=== PATIENT | female | born 1950 | race Caucasian/White ===

== ENCOUNTER 2021-08-29 09:22 | Outpatient (REF) | payer MEDICARE, OTHER, SELFPAY ==
--- NOTE | ~2021-08-29 | MM_ITS ---
EXAMINATION: BONE DENSITOMETRY CLINICAL INDICATION: Age-related osteoporosis without current pathological fracture. COMPARISON: None (current study represents initial baseline exam). TECHNIQUE: Using a Amicus DXA System (software version: 13.1) manufactured by [employer], dual-energy x-ray absorptiometry was performed of the lumbar spine and left hip. The images are of good technical quality. Summary results are attached. FINDINGS: AP SPINE L1-L4: BMD 0.943 g/cm2, Z-score 0.1, T-score -2.0, osteopenia. LEFT FEMUR, NECK: BMD 0.742 g/cm2, Z-score -0.2, T-score 2.1, osteopenia. LEFT FEMUR, TOTAL: BMD 0.766 g/cm2, Z-score -0.2, T-score -1.9, osteopenia. IDENTIFIED RISK FACTORS: Menopause, hysterectomy, bilateral oophorectomy low calcium intake. HISTORY OF FRACTURE: None listed. MEDICATIONS: Vitamin D. MM/XR DEXA axial skeleton IMPRESSION: 1. DIAGNOSIS: Osteopenia based on the lowest T-score value of -2.1 in the femoral neck applying World Health Organization criteria. 2. 10-YEAR FRACTURE RISK PREDICTION, FRAX: Major osteoporotic fracture (clinical spine, forearm, hip or shoulder) 11.6%. Hip fracture 2.6%. 3. Treatment Recommendations: NOF guidelines recommend consideration for treatment in postmenopausal women and men age 50 and older presenting with the following: -A hip or vertebral (clinical or morphometric) fracture. -T-score less than or equal to -2.5 at the femoral neck or spine after appropriate evaluation to exclude secondary causes. -Low bone mass at the hip or spine and a 10-year fracture probability by FRAX of greater than or equal to 3% for hip fracture or greater than or equal to 20% for major osteoporotic fracture based on the [place] adapted WHO algorithm. 4. Other Recommendations: All treatment decisions require clinical judgment and consideration of individual patient factors, including patient preferences, comorbidities, previous drug use, risk factors not captured in the FRAX model (e.g. frailty, falls, vitamin D deficiency, increased bone turnover, interval significant decline in bone density) and possible under or overestimation of fracture risk by FRAX. Additional medical evaluation for secondary cause of low bone mineral density may be appropriate. FUTURE SCAN RECOMMENDATION: People with diagnosed cases of osteoporosis or at high risk for fracture should have regular bone mineral density tests. For patients eligible for Medicare, routine testing is allowed once every 2 years. The testing frequency can be increased to one year for patients who have rapidly progressing disease, those who are receiving or discontinuing medical therapy to restore bone mass, or have additional risk factors.
== END 2021-08-29 09:23 | disposition home or self-care (01) ==
LOC: HO.MAMMO 09:22
PROVIDERS: Visit Provider Internal Medicine
DX: Z13.820 Encounter for screening for osteoporosis (principal); E83.51 Hypocalcemia; Z78.0 Asymptomatic menopausal state; Z90.710 Acquired absence of both cervix and uterus; Z90.722 Acquired absence of ovaries, bilateral
CPT/HCPCS: 77080

== ENCOUNTER 2021-09-18 10:29 | Outpatient (REF) | payer MEDICARE, OTHER, SELFPAY ==
[2021-09-18 10:55] LABS: COVID-19 Test Positive (Negative)
== END 2021-09-18 10:30 | disposition home or self-care (01) ==
LOC: HO.LAB 10:29
PROVIDERS: Visit Provider Internal Medicine
DX: Z20.822 Contact with and (suspected) exposure to COVID-19 (principal)
CPT/HCPCS: 87635; C9803

== ENCOUNTER 2021-09-28 08:29 | Outpatient (REF) | payer MEDICARE, OTHER, SELFPAY ==
[2021-09-28 08:57] LABS: COVID-19 Test Positive (Negative)
== END 2021-09-28 08:30 | disposition home or self-care (01) ==
LOC: HO.LAB 08:29
PROVIDERS: Visit Provider Internal Medicine
DX: Z20.822 Contact with and (suspected) exposure to COVID-19 (principal)
CPT/HCPCS: 87635; C9803

== ENCOUNTER 2021-11-08 06:34 | Outpatient (REF) | payer MEDICARE, OTHER, SELFPAY ==
[2021-11-08 11:28] LABS: Hematocrit 42.3 % (37.0-47.0); Hemoglobin 13.6 g/dl (12.0-16.0); Mean Corpuscular HGB Conc 32.2 g/dl (31.0-35.0); Mean Corpuscular Volume 93.4 fL (80.0-98.0); Mean Platelet Volume 10.6 fL (9.4-12.3); Platelet Count 301 X10*3/uL (160-400); Red Blood Count 4.53 X10*6/uL (4.20-5.50); Red Cell Distribution Width 13.2 % (11.0-16.0); White Blood Count 6.1 X10*3/uL (4.8-10.8)
[2021-11-08 11:52] LABS: Estimated Average Glucose 105 mg/dL; Hemoglobin A1c % 5.3 %
[2021-11-08 11:53] LABS: Alanine Aminotransferase 11 U/L (0-31); Albumin Level 4.3 g/dL (3.5-5.0); Alkaline Phosphatase 59 U/L (39-117); Anion Gap 13 (12-20); Aspartate Amino Transferase 17 U/L (5-31); Bilirubin Total 1.8 mg/dL (0.0-1.0); Blood Urea Nitrogen 14 mg/dL (9-16); Calcium 9.2 mg/dL (8.4-10.2); Carbon Dioxide 26 mmol/L (22-29); Chloride 106 mmol/L (96-108); Cholesterol 160 mg/dL; Estimated Glomerular Filt Rate > 60; Glucose Fasting 85 mg/dL (60-99); HDL Cholesterol 61 mg/dL; LDL Cholesterol Calculated 76 mg/dl; Potassium 3.7 mmol/L (3.3-5.1); Sodium 141 mmol/L (135-145); Total Protein 6.9 g/dL (6.5-8.0); Triglycerides 118 mg/dL
[2021-11-08 12:16] LABS: Vitamin D 25-OH Total 40.3 ng/mL (>30)
== END 2021-11-08 06:35 | disposition home or self-care (01) ==
LOC: HO.HMGCLDS 06:34
PROVIDERS: PCP Internal Medicine; Visit Provider Internal Medicine
DX: E78.5 Hyperlipidemia, unspecified (principal); I10 Essential (primary) hypertension; M47.812 Spondylosis without myelopathy or radiculopathy, cervical region; R73.9 Hyperglycemia, unspecified; M81.0 Age-related osteoporosis without current pathological fracture
CPT/HCPCS: 36415; 80053; 80061; 82306; 83036; 85027

== ENCOUNTER 2022-04-06 08:00 | Outpatient (RCR) | payer MEDICARE, OTHER, SELFPAY ==
--- NOTE | 2022-03-09 08:56 | MHC.PT.EP ---
[facility] [place] Office [place] Office [place] Office [address] Sarah Bateman [address] [phone] F: [phone] F: [phone] F: [phone] F: [phone] Physical Therapy Plan of Care Date of Evaluation: Date of Surgery: n/a Diagnosis: cervical spondylosis Assessment: Patient is a 72 year old female presenting to PT with complaints of pain in her neck. Pt reports onset of pain began October 2021 due to lifting something heavy. She presents today with impairments in pain, cervical ROM, posture, B shoulder strength, UT tightness. 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 Pt expresses residential goal of reducing pain, and is motivated to work towards this in PT. Clinical presentation today is most consistent with signs and sx associated with chronic neck pain and pt will benefit from skilled PT to address the following problems and impairments noted upon evaluation: pain, cervical ROM, posture, B shoulder strength, UT tightness. These problems limit the patient with the following functional activities: ADLs, reaching, lifting, sitting. The prescribed treatment plan of care is medically necessary. Co-morbidities of hx stroke, hx basal cell carcinoma, HTN were identified and taken into considerations of plan of care. Pt was educated on HEP, role of PT, prognosis, POC. Frequency and Duration: The patient will be seen 2 x week x 4 weeks Short Term Goals: Pt will report pain at rest <3/10 in 2 weeks for improved QOL. Pt will demonstrate improved B shoulder MMT strength to at least 4+/5 in 2 weeks. Pt will demonstrate minimal to no tenderness to UT muscle in 2 weeks. Pt will demonstrate improved postural awareness by sitting with biomechanically correct posture without cues throughout session to improve overall postural function in 2 weeks. Alf Goals: Pt will demonstrate improved NDI score by 10% in 4 weeks for improved functional mobility. Pt will demonstrate ability to complete ADLs with minimal pain in 4 weeks for return to PLOF. Pt will demonstrate ability to reach with her R arm and minimal pain in 4 weeks for improved ability to blow dry her hair. Treatment Plan: Modalities to reduce pain, spasms and effusion. Manual therapy to restore motion and function. Therapeutic exercise to improve strength and flexibility. Neuromuscular re-education for posture and balance. Therapeutic activities to return to functional activities of daily living. Electronically signed by: Kamini Martinez PT, DPT, ATC Please sign and return to therapist. Thank you for your referral.
--- NOTE | 2022-04-06 08:44 | MHC.PT.DC ---
[facility] [place] Office [place] Office [place] Office [address] Sarah Bateman [address] [phone] F: [phone] F: [phone] F: [phone] F: [phone] Physical Therapy Discharge Report Diagnosis: cervical spondylosis Date of Surgery: n/a Date of Evaluation: 03/09/22 Date of Discharge: 04/06/22 Treatments to Date: 6 Cancellations to Date: 3 No Shows to Date: 0 Discharge Status: Independent with HEP Recommend MD Follow-up Discharge Summary: 04/06/2022: Pt has unfortunately felt no relief from PT despite good compliance with HEP and attendance. She continues to have pain and functional limitations limiting her progress towards her goals. Max benefits of PT have been provided at this time and various different treatment interventions have been trialed all without success. Skilled PT is no longer indicated as she is not feeling relief with this intervention. Discussed recommendation to follow up with MD for further management of pain and sx and she demonstrates understanding and agreement with this plan. Electronically signed by: Kamini Martinez, PT, DPT, ATC Please sign and return to therapist. Thank you for your referral.
== END 2022-04-06 08:44 | disposition home or self-care (01) ==
LOC: HO.PTCHIC 08:00
PROVIDERS: PCP Internal Medicine; Visit Provider Internal Medicine
DX: M47.22 Other spondylosis with radiculopathy, cervical region (principal)
CPT/HCPCS: 97110; 97140; 97162

== ENCOUNTER 2022-12-04 07:31 | Outpatient (AMB) | payer MEDICARE, OTHER, SELFPAY ==
[2022-12-04 07:48] VITALS: BP 120/78; PULSE 82; O2SAT 96; BMI 22.3
--- NOTE | 2022-12-04 07:48 | AM.OFFVISMDC ---
Intake Vital Signs 12/04/22 07:48 Height 5 ft 1 in Weight 118 lb BMI 22.3 BP 120/78 Blood Pressure Location Rt brachial Position Sitting Pulse 82 Pulse Source Pulse Oximeter Pulse Oximetry (%) 96 Oxygen Delivery Method Room Air Intake Visit Reasons: SWV G0439 Allergies codeine [CODEINE] Allergy (Unknown, Unverified 12/04/22 07:51) SHORTNESS OF BREATH Medication List - Last Reconciled 12/04/22 by Stephani Patel MD atorvastatin 10 mg PO DAILY cholecalciferol (vitamin D3) PO gabapentin 100 -200 mg orally bedtime; lisinopril 5 mg PO DAILY HPI SWV G0439 HPI Details Pt presens for annual. Pt c/o LEAL when working in the garden this summer, feeling more fatigued. She denies CP, PND, orthopnea, palpitations.Initiated the conversation about Advanced Directives. Advanced Directives help? patients prepare for current and future decisions about their medical treatment? and place of care. Discussed with patient that it is a process where a patients? current condition and prognosis are reviewed, their wishes for information? regarding their illness are elicited, and likely medical dilemmas are presented? and options discussed. The form can be amended as needed, reviewed yearly and? make changes as needed IPPE/AWV ? year old presents? for her ? Annual? Wellness Visit, initial visit.? Medical / Social History Reviewed? Past Medical History ?Yes? . ? [place]? of Care / Care Team list updated ?Yes . ? Surgical/Hospitalization? History ?Yes . ? Current Medications? (including OTC and supplements) ?Yes . ? Family History ?Yes? . ? Tobacco? Control form ?Yes . ? AUDIT-C (Alcohol use) form? ?Yes . ? Illicit drug use in Social? History ?Yes . ? Current diagnosis of? depression? ?No ? Appropriate PHQ2/PHQ9? completed ?Yes . ? Data entered by ?Medical? Reel Operator and reviewed by provider ? Fall Risk ? Fall? History? Have you had any falls with? injury in the past year? ?No . ? Have you had two or more? falls in the past year? ?No . ? Fall Risk Assessment: ?No? falls in the past year . ? HRA filled out by? the patient, reviewed by Provider and scanned. ? IPPE/AWV ? Balance? [place]? ?Yes . ? Tandem? walk ?Yes . ? Walk and? Turn ?Yes . ? Rise from? sit to stand ?Yes . ?Vision? Corrective? lens ?Yes ? Vision? screen ? Up-to-date, has an appointment [] for vision? screening and glaucoma screening ?Hearing? Whisper? test ?pass .? Initiated the conversation about Advanced Directives. Advanced Directives help? patients prepare for current and future decisions about their medical treatment? and place of care. Discussed with patient that it is a process where a patients? current condition and prognosis are reviewed, their wishes for information? regarding their illness are elicited, and likely medical dilemmas are presented? and options discussed. The form can be amended as needed, reviewed yearly and? make changes as needed Written? Plan?Completed. See Patient? Documents. [facility] Medical History Basal cell carcinoma CVA (cerebral vascular accident) DJD (degenerative joint disease), cervical HTN (hypertension) Hyperglycemia Hyperlipemia Surgical History Hx of colonoscopy History of hysterectomy S/P cholecystectomy History of appendectomy Family History Mother Stroke Hypertension Father No problems noted. Paternal Grandmother Cancer Social History Household Members Other:: , 2 alive adult children, Housing: House Patient Tobacco Use Status: Never used Tobacco e-Cigarette/Vaping Use: Never Used Current occupational status: retired Cognitive needs: No Hearing needs: No Vision needs: Yes Questionnaire Medicare Wellness Checkup [age] What gender do you identify with?: female During the past 4 weeks, how much have you been bothered by emotional problems such as feeling anxious, depressed, irritable, sad or downhearted, and blue?: not at all During the past 4 weeks, has your physical & emotional health limited your social activities with family, friends, neighbors, or groups?: not at all During the past 4 weeks, how much bodily pain have you generally had?: moderate pain During the past 4 weeks, was someone available to help you if you needed & wanted help?: yes, as much as I wanted During the past 4 weeks, what was the hardest physical activity you could do for at least 2 minutes?: moderate Can you get to places out of walking distance without help? (For eg., can you travel alone on buses, taxis or drive your car?): Yes Can you go shopping for groceries or clothes without someone's help?: Yes Can you prepare your own meals?: Yes Can you do your housework without help?: Yes Because of any health problems, do you need the help of another person with your personal care needs such as eating, bathing, dressing or getting around the house?: No Can you handle your own money without help?: Yes During the past 4 weeks, how would you rate your health in general?: good During the past 4 weeks how have things been going for you?: pretty well Are you having difficulties driving your car?: no Do you always fasten your seat belt when you are in a car?: yes, usually During past 4 weeks, have you been bothered by the following: never: Sexual problems?, Trouble eating well?, Teeth or denture problems? and Problems using the telephone?, seldom: Falling or dizzy when standing up and sometimes: Tiredness or fatigue? Have you fallen 2 or more times in the past year?: No Are you afraid of falling?: Yes Are you a smoker?: no During the past 4 weeks, how many drinks of wine, beer, or other alcoholic beverages did you have?: 2-5 drinks per week Do you exercise for about 20 minutes 3 or more times a week?: yes, all the time Have you been given information to help with the following?: yes: Hazards in your house that might hurt you? and yes: Keeping track of your medications? How often do you have trouble taking medicines the way you have been told to take them?: I always take medicine as prescribed How confident are you that you can control & manage most of your health problems?: very confident What is your race?: White PHQ-9 Over the last 2 weeks, how often have you been bothered by any of the following problems? 1. Little interest or pleasure in doing things: not at all 2. Feeling down, depressed, or hopeless: not at all 3. Trouble falling or staying asleep, or sleeping too much: nearly every day 4. Feeling tired or having little energy: several days 5. Poor appetite or overeating: not at all 6. Feeling bad about yourself - or that you are a failure or have let yourself or your family down: not at all 7. Trouble concentrating on things, such as reading the newspaper or watching television: several days 8. Moving or speaking so slowly that other people could have noticed. Or the opposite - being so fidgety or restless that you have been moving around a lot more than usual: not at all 9. Thoughts that you would be better off or of hurting yourself in some way: not at all Total score: 5 Source: Developed by Drs. Carlton Dobbs, Jessica Duke, Alex Vargas and colleagues, with an educational priya from [employer]. Review of Systems Const All systems reviewed & are unremarkable except as noted in HPI and below Reports no additional complaints Eyes Reports no additional complaints ENT Reports no additional complaints Card Reports no additional complaints Resp Reports no additional complaints GI Reports no additional complaints Reports no additional complaints Physical Exam Vital Signs: Last Vital Signs Pulse 82 12/04/22 07:48 BP 120/78 12/04/22 07:48 Pulse Ox 96 12/04/22 07:48 Oxygen Delivery Method Room Air 12/04/22 07:48 BMI result Body Mass Index 22.3 Const General: no acute distress HEENT Head: Yes normal to inspection Eyes General: appearance normal, both eyes and all related structures Neck Neck: Yes no lymphadenopathy and Yes supple Resp Effort & Inspection: normal respiratory effort Auscultation: clear to auscultation bilaterally Cardio Rhythm: regular rhythm Heart sounds: S1 normal heart sound present and S2 normal heart sound present GI Inspection: Yes normal to inspection Palpation (GI): Soft to palpation Percussion: Yes normal to percussion Auscultation: normal bowel sounds Extrem General: Yes no clubbing, cyanosis or edema Assessment & Plan Assessment & Plan (1) Hyperglycemia: Code(s): R73.9 - Hyperglycemia, unspecified Plan: cont ADA diet, return for fasting labs (2) HTN (hypertension): Code(s): I10 - Essential (primary) hypertension Plan: cont meds (3) Hyperlipemia: Code(s): E78.5 - Hyperlipidemia, unspecified Plan: cont meds (4) LEAL (dyspnea on exertion): Code(s): R06.09 - Other forms of dyspnea Plan: EKG showed NSR, no ST-T changes, check stress test to r/o ischemia (5) Hearing loss: Code(s): H91.90 - Unspecified hearing loss, unspecified ear Plan: refer to audiology (6) Annual physical exam: Code(s): Z00.00 - Encounter for general adult medical examination without abnormal findings Plan: well balanced diet, exercise, schedule mammogram, f/u 2 months Orders: Orders Complete Blood Count Auto Diff Today E78.5 - Hyperlipidemia, unspecified, I10 - Essential (primary) hypertension, R73.9 - Hyperglycemia, unspecified, Z00.00 - Encounter for general adult medical examination without abnormal findings Lipid Panel Today E78.5 - Hyperlipidemia, unspecified, I10 - Essential (primary) hypertension, R73.9 - Hyperglycemia, unspecified, Z00.00 - Encounter for general adult medical examination without abnormal findings TSH reflex Free T4 Today E78.5 - Hyperlipidemia, unspecified, I10 - Essential (primary) hypertension, R73.9 - Hyperglycemia, unspecified, Z00.00 - Encounter for general adult medical examination without abnormal findings CA stress test Today R06.09 - Other forms of dyspnea MM screening mammo BI Today E78.5 - Hyperlipidemia, unspecified, I10 - Essential (primary) hypertension, R73.9 - Hyperglycemia, unspecified, Z00.00 - Encounter for general adult medical examination without abnormal findings, Z12.31 - Encounter for screening mammogram for malignant neoplasm of breast Comprehensive [place]. Panel Fast Today E78.5 - Hyperlipidemia, unspecified, I10 - Essential (primary) hypertension, R73.9 - Hyperglycemia, unspecified, Z00.00 - Encounter for general adult medical examination without abnormal findings UA w Microscopic Today E78.5 - Hyperlipidemia, unspecified, I10 - Essential (primary) hypertension, R73.9 - Hyperglycemia, unspecified, Z00.00 - Encounter for general adult medical examination without abnormal findings Vitamin D 25-OH Total Today E78.5 - Hyperlipidemia, unspecified, I10 - Essential (primary) hypertension, R73.9 - Hyperglycemia, unspecified, Z00.00 - Encounter for general adult medical examination without abnormal findings Hemoglobin A1c Today R73.9 - Hyperglycemia, unspecified AMB EKG-In Office Today I10 - Essential (primary) hypertension, R06.09 - Other forms of dyspnea Referrals Audiology Referral H91.90 - Unspecified hearing loss, unspecified ear Quality Reporting (2019) Depression/Bipolar (159/160/161/177) PHQ-9: Total score: 5 Coding Level of Care Code Medicare Subsequent (G0439) Diagnoses Hyperglycemia R73.9 HTN (hypertension) I10 Hyperlipemia E78.5 LEAL (dyspnea on exertion) R06.09 Hearing loss H91.90 Annual physical exam Z00.00 CPT Codes Advance Care Planning - Time spent: 1-15 minutes, not on file ([id number]) Advance Care Planning Advance Care Planning discussion: Exists, not on file Forms completed: Health Care Proxy Time spent: 1-15 minutes, not on file
== END 2022-12-04 08:59 | disposition home or self-care (01) ==
PROVIDERS: PCP Internal Medicine; Visit Provider Internal Medicine
DX: Z00.00 Encounter for general adult medical examination without abnormal findings (principal); R73.9 Hyperglycemia, unspecified; I10 Essential (primary) hypertension; E78.5 Hyperlipidemia, unspecified; R06.09 Other forms of dyspnea; H91.90 Unspecified hearing loss, unspecified ear
CPT/HCPCS: 1124F; 93000; G0439

== ENCOUNTER 2022-12-06 06:04 | Outpatient (REF) | payer MEDICARE, OTHER, SELFPAY ==
[2022-12-06 11:00] LABS: MANUAL DIFF FLAG NO
[2022-12-06 11:17] LABS: Basophils Percent Auto 0.6 % (0-2); Eosinophils Absolute Auto 0.1 X10*3/uL (0.0-0.4); Eosinophils Percent Auto 2.7 % (0-4); Hematocrit 39.4 % (37.0-47.0); Hemoglobin 12.9 g/dl (12.0-16.0); Imm Gran Abs Auto 0.03 X10*3/uL (0.00-0.03); Imm Gran Pct Auto 0.6 % (0.0-0.4); Lymphocytes Absolute Auto 1.6 X10*3/uL (1.2-4.9); Lymphocytes Percent Auto 29.5 % (20-40); Mean Corpuscular HGB Conc 32.7 g/dl (31.0-35.0); Mean Corpuscular Hemoglobin 30.9 pg (27.0-33.0); Mean Corpuscular Volume 94.3 fL (80.0-98.0); Mean Platelet Volume 10.5 fL (9.4-12.3); Monocytes Absolute Auto 0.6 X10*3/uL (0.1-1.2); Neutrophils Absolute Auto 2.9 x10*3/uL (2.0-8.3); Neutrophils Percent Auto 55.6 % (45-73); Platelet Count 274 X10*3/uL (160-400); Red Blood Count 4.18 X10*6/uL (4.20-5.50); Red Cell Distribution Width 13.4 % (11.0-16.0); White Blood Count 5.3 X10*3/uL (4.8-10.8)
[2022-12-06 11:19] LABS: Appearance Urine Clear; Color Urine Yellow; Glucose Urine UA Negative (Negative); Leukocyte Esterase Urine Small (1+) (Negative); Nitrite Urine Negative (Negative); PH 7.5 (5.0-9.0); UMIC TRIGGER UA YES; Urine Blood Negative (Negative); Urine Ketones Negative (Negative); Urine Protein Negative (Neg-Trace)
[2022-12-06 11:34] LABS: Bacteria Urine None Seen (None Seen); Hyaline Casts Urine 0-2 /LPF (0-2); RBC Urine 0-2 /HPF (0-2); Squamous Epithelial Cell Urine 0-2 /HPF (0-2); WBC Urine 0-5 /HPF (0-5)
[2022-12-06 12:02] LABS: Alanine Aminotransferase 10 U/L (0-31); Albumin Level 4.1 g/dL (3.5-5.0); Alkaline Phosphatase 57 U/L (39-117); Anion Gap 11 (12-20); Aspartate Amino Transferase 17 U/L (5-31); Bilirubin Total 1.4 mg/dL (0.0-1.0); Blood Urea Nitrogen 12 mg/dL (9-16); Calcium 9.1 mg/dL (8.4-10.2); Carbon Dioxide 27 mmol/L (22-29); Chloride 106 mmol/L (96-108); Cholesterol 156 mg/dL (<200); Estimated Glomerular Filt Rate > 60; Glucose Fasting 89 mg/dL (60-99); HDL Cholesterol 71 mg/dL (>40); LDL Cholesterol Calculated 72 mg/dL (<100); Potassium 4.2 mmol/L (3.3-5.1); Sodium 140 mmol/L (135-145); TSH reflex Free T4 1.63 uIU/mL (0.32-4.0); Total Protein 6.5 g/dL (6.5-8.0); Triglycerides 65 mg/dL (<150); Vitamin D 25-OH Total 68.9 ng/mL (>30)
[2022-12-06 12:45] LABS: Estimated Average Glucose 105 mg/dL; Hemoglobin A1c % 5.3 % (<6.0)
== END 2022-12-06 06:05 | disposition home or self-care (01) ==
LOC: HO.HMGCLDS 06:04
PROVIDERS: PCP Internal Medicine; Visit Provider Internal Medicine
DX: Z00.00 Encounter for general adult medical examination without abnormal findings (principal); R73.9 Hyperglycemia, unspecified; I10 Essential (primary) hypertension; E78.5 Hyperlipidemia, unspecified
CPT/HCPCS: 36415; 80053; 80061; 81001; 82306; 83036; 84443; 85025

== ENCOUNTER 2022-12-27 08:09 | Outpatient (REF) | payer MEDICARE, OTHER, SELFPAY ==
--- NOTE | 2022-12-27 08:49 | CA_ITS ---
Acquisition Time: 2022-12-27 08:59:55 Total Exercise Time: 00:05:02 Test Indications: SOB Medications: Protocol: VICTORINO Max HR: 151 BPM 101% of Pred: 149 BPM Max BP: 138/068 mmHG Max Work Load: 7.0 METS Exercise stress test exercise 5 min 2 sec of Victorino protocol achieving 101% MPHR, with mild SOB, no chest discomfort, with isolated PACs, with normotensive response to exercise, without EKG changes. Breathing resolved quickly in recovery. Test reviewed with Dr. Dunn Referred By: Stephani Patel Overread By: May Waters
== END 2022-12-27 08:10 | disposition home or self-care (01) ==
LOC: HO.MAMMO 08:09
PROVIDERS: PCP Internal Medicine; Visit Provider Internal Medicine
DX: R06.09 Other forms of dyspnea (principal); R73.9 Hyperglycemia, unspecified; I10 Essential (primary) hypertension; Z12.31 Encounter for screening mammogram for malignant neoplasm of breast
CPT/HCPCS: 77063; 77067; 93017

== ENCOUNTER → 2022-12-27 08:15 | Outpatient (BNV) | payer MEDICARE, OTHER, SELFPAY | PROVIDERS: PCP Internal Medicine; Visit Provider Radiology Diagnostic Radiology | DX: Z12.31 Encounter for screening mammogram for malignant neoplasm of breast (principal) | CPT/HCPCS: 77063; 77067 ==

== ENCOUNTER → 2022-12-27 08:49 | Outpatient (BNV) | payer MEDICARE, OTHER, SELFPAY | PROVIDERS: PCP Internal Medicine; Visit Provider Nurse Practitioner | DX: R06.02 Shortness of breath (principal) | CPT/HCPCS: 93016; 93018 ==

== ENCOUNTER 2023-07-22 06:09 | Outpatient (REF) | payer MEDICARE, OTHER, SELFPAY ==
[2023-07-22 10:29] LABS: MANUAL DIFF FLAG NO
[2023-07-22 10:36] LABS: Basophils Percent Auto 0.5 % (0-2); Eosinophils Absolute Auto 0.1 X10*3/uL (0.0-0.4); Eosinophils Percent Auto 1.7 % (0-4); Hematocrit 41.3 % (37.0-47.0); Hemoglobin 13.7 g/dl (12.0-16.0); Imm Gran Abs Auto 0.02 X10*3/uL (0.00-0.03); Imm Gran Pct Auto 0.3 % (0.0-0.4); Lymphocytes Absolute Auto 1.5 X10*3/uL (1.2-4.9); Lymphocytes Percent Auto 25.2 % (20-40); Mean Corpuscular HGB Conc 33.2 g/dl (31.0-35.0); Mean Corpuscular Hemoglobin 31.6 pg (27.0-33.0); Mean Corpuscular Volume 95.2 fL (80.0-98.0); Mean Platelet Volume 10.4 fL (9.4-12.3); Monocytes Absolute Auto 0.6 X10*3/uL (0.1-1.2); Monocytes Percent Auto 10.3 % (2-11); Neutrophils Absolute Auto 3.8 x10*3/uL (2.0-8.3); Platelet Count 288 X10*3/uL (160-400); Red Blood Count 4.34 X10*6/uL (4.20-5.50); Red Cell Distribution Width 13.1 % (11.0-16.0)
[2023-07-22 10:52] LABS: Alanine Aminotransferase 10 U/L (0-31); Albumin Level 4.3 g/dL (3.5-5.0); Alkaline Phosphatase 65 U/L (39-117); Anion Gap 15 (12-20); Aspartate Amino Transferase 18 U/L (5-31); Bilirubin Total 1.3 mg/dL (0.0-1.0); Blood Urea Nitrogen 12 mg/dL (9-16); Calcium 9.4 mg/dL (8.4-10.2); Carbon Dioxide 24 mmol/L (22-29); Chloride 107 mmol/L (96-108); Estimated Glomerular Filt Rate > 60; Glucose Fasting 87 mg/dL (60-99); Potassium 4.2 mmol/L (3.3-5.1); Sodium 142 mmol/L (135-145); Total Protein 6.9 g/dL (6.5-8.0)
== END 2023-07-22 06:10 | disposition home or self-care (01) ==
LOC: HO.HMGCLDS 06:09
PROVIDERS: PCP Internal Medicine; Visit Provider Internal Medicine
DX: I10 Essential (primary) hypertension (principal); E78.5 Hyperlipidemia, unspecified
CPT/HCPCS: 36415; 80053; 85025

== ENCOUNTER 2023-07-24 13:22 | Outpatient (AMB) | payer MEDICARE, OTHER, SELFPAY ==
[2023-07-24 13:44] VITALS: BP 116/66; PULSE 91; O2SAT 96; BMI 22.3
--- NOTE | 2023-07-24 13:44 | MHC.PC.OV ---
Vital Signs 07/24/23 13:44 Height 5 ft 1 in Weight 118 lb BMI 22.3 BP 116/66 Blood Pressure Location Lt brachial Position Sitting Pulse 91 Pulse Source Pulse Oximeter Pulse Oximetry (%) 96 Oxygen Delivery Method Room Air Intake Visit Reasons: Pre op cataract surgery 08/06/23 Intake Note: Pt is here today for pre op visit. Pt is having cataract surgery. Allergies codeine [CODEINE] Allergy (Unknown, Unverified 07/24/23 13:48) SHORTNESS OF BREATH Medication List - Last Reconciled 07/24/23 by Stephani Patel MD atorvastatin 10 mg PO DAILY cholecalciferol (vitamin D3) PO gabapentin 100 -200 mg orally bedtime; lisinopril 5 mg PO DAILY Tobacco use date assessed: 07/24/23 Fall risk assessment: No Falls in past year Last assessed Fall Risk: 07/24/23 Dental Screening Dental Screen Date: 07/24/23 Did you have a dental visit in the last 12 months?: Yes Did you have a dental problem in the last 6 months where you did not have access to dental care?: No Was dental information given to patient?: Patient has dentist HPI Pre op cataract surgery 08/06/23 HPI Details Pt presents for cataract surgery. HTN and hyperlipid are stable on meds. [facility] Medical History (Updated 07/24/23 @ 14:33 by Stephani Patel MD) Hyperglycemia Basal cell carcinoma DJD (degenerative joint disease), cervical HTN (hypertension) Hyperlipemia CVA (cerebral vascular accident) Surgical History Hx of colonoscopy History of hysterectomy S/P cholecystectomy History of appendectomy Family History Mother Stroke Hypertension Father No problems noted. Paternal Grandmother Cancer Social History Household Members Other:: , 2 alive adult children, Housing: House Patient Tobacco Use Status: Never used Tobacco e-Cigarette/Vaping Use: Never Used service: No Current occupational status: retired Cognitive needs: No Hearing needs: No Vision needs: Yes Questionnaire Thrive Questionnaire Date Thrive assessed: 11/01/21 AUDIT C Alcohol Use Questionnaire (AUDIT-C) 1. How often do you have a drink containing alcohol?: Monthly or less 2. How many drinks containing alcohol do you have on a typical day when you are drinking?: 1 or 2 3. How often do you have six or more drinks on one occasion?: Never Total Score: 1 MAYKEL-7 AMB Questionnaire MAYKEL-7 Date MAYKEL - 7 assessed: 11/01/21 Source: Developed by Drs. Carlton Dobbs, Jessica Duke, Alex Vargas and colleagues, with an educational priya from [employer]. Review of Systems Const All systems reviewed & are unremarkable except as noted in HPI and below Eyes Reports no additional complaints ENT Reports no additional complaints Physical exam (Primary Care) Vital Signs: Last Vital Signs Pulse 91 07/24/23 13:44 BP 116/66 07/24/23 13:44 Pulse Ox 96 07/24/23 13:44 Oxygen Delivery Method Room Air 07/24/23 13:44 BMI result Body Mass Index 22.3 Tobacco/Smoking Status: Tobacco use Status Tobacco use date assessed 07/24/23 07/24/23 13:49 Patient Tobacco Use Status Never used Tobacco 07/24/23 13:49 e-Cigarette/Vaping Use Never Used 07/24/23 13:45 Thrive Assessment: Date of Thrive Assessment Date Thrive assessed 11/01/21 07/24/23 13:45 Const General: no acute distress HENMT Head: Yes normal to inspection Throat: Yes posterior oropharynx normal Resp Effort & Inspection: normal respiratory effort Auscultation: clear to auscultation bilaterally Cardio Rhythm: regular rhythm Heart sounds: S1 normal heart sound present and S2 normal heart sound present GI Inspection: Yes normal to inspection Palpation (GI): Soft to palpation Percussion: Yes normal to percussion Auscultation: normal bowel sounds Assessment and Plan Assessment & Plan (1) Hyperlipemia: Code(s): E78.5 - Hyperlipidemia, unspecified Plan: Continue atorvastatin (2) HTN (hypertension): Code(s): I10 - Essential (primary) hypertension Plan: Continue Lisinopril (3) Cataract: Code(s): H26.9 - Unspecified cataract Plan: Patient is medically cleared for cataract surgery Coding Level of Care Code Est Pt Level 4 (32161) Diagnoses Hyperlipemia E78.5 HTN (hypertension) I10 Cataract H26.9
== END 2023-07-24 14:33 | disposition home or self-care (01) ==
LOC: HO.HMGC 13:43
PROVIDERS: PCP Internal Medicine; Visit Provider Internal Medicine
DX: E78.5 Hyperlipidemia, unspecified (principal); I10 Essential (primary) hypertension; H26.9 Unspecified cataract
CPT/HCPCS: 99214

== ENCOUNTER 2023-12-10 07:53 | Outpatient (AMB) | payer MEDICARE, OTHER, SELFPAY ==
[2023-12-10 08:11] VITALS: BP 108/70; PULSE 70; O2SAT 100; BMI 21.7
--- NOTE | 2023-12-10 08:11 | A.OFFVIS_ITS ---
Intake Vital Signs 12/10/23 08:11 Height 5 ft 1 in Weight 115 lb BMI 21.7 BP 108/70 Blood Pressure Location Lt brachial Position Sitting Pulse 70 Pulse Source Pulse Oximeter Pulse Oximetry (%) 100 Oxygen Delivery Method Room Air Intake Visit Reasons: SHAYNA [id number] Intake Note: Pt is here today for AWV. Pt states that she needs a dose change on her Misti pentin. Allergies codeine [CODEINE] Allergy (Unknown, Unverified 12/10/23 08:13) SHORTNESS OF BREATH Medication List - Last Reconciled 12/10/23 by Stephani Patel MD atorvastatin 10 mg PO DAILY cholecalciferol (vitamin D3) PO gabapentin 100 -200 mg orally bedtime; lisinopril 5 mg PO DAILY HPI SWV [id number] HPI Details Initiated the conversation about Advanced Directives. Advanced Directives help? patients prepare for current and future decisions about their medical treatment? and place of care. Discussed with patient that it is a process where a patients? current condition and prognosis are reviewed, their wishes for information? regarding their illness are elicited, and likely medical dilemmas are presented? and options discussed. The form can be amended as needed, reviewed yearly and? make changes as needed IPPE/AWV ? year old presents? for her ? Annual? Wellness Visit, initial visit.? Medical / Social History Reviewed? Past Medical History ?Yes? . ? [place]? of Care / Care Team list updated ?Yes . ? Surgical/Hospitalization? History ?Yes . ? Current Medications? (including OTC and supplements) ?Yes . ? Family History ?Yes? . ? Tobacco? Control form ?Yes . ? AUDIT-C (Alcohol use) form? ?Yes . ? Illicit drug use in Social? History ?Yes . ? Current diagnosis of? depression? ?No ? Appropriate PHQ2/PHQ9? completed ?Yes . ? Data entered by ?[facility]? [employer] and reviewed by provider ? Fall Risk ? Fall? History? Have you had any falls with? injury in the past year? ?No . ? Have you had two or more? falls in the past year? ?No . ? Fall Risk Assessment: ?No? falls in the past year . ? HRA filled out by? the patient, reviewed by Provider and scanned. ? IPPE/AWV ? Balance? [place]? ?Yes . ? Tandem? walk ?Yes . ? Walk and? Turn ?Yes . ? Rise from? sit to stand ?Yes . ?Vision? Corrective? lens ?Yes ? Vision? screen ? Up-to-date, has an appointment [] for vision? screening and glaucoma screening ?Hearing? Whisper? test ?pass .? Initiated the conversation about Advanced Directives. Advanced Directives help? patients prepare for current and future decisions about their medical treatment? and place of care. Discussed with patient that it is a process where a patients? current condition and prognosis are reviewed, their wishes for information? regarding their illness are elicited, and likely medical dilemmas are presented? and options discussed. The form can be amended as needed, reviewed yearly and? make changes as needed Written? Plan?Completed. See Patient? Documents. [id number] [facility] Medical History (Updated 07/24/23 @ 14:33 by Stephani Patel MD) Hyperglycemia Basal cell carcinoma DJD (degenerative joint disease), cervical HTN (hypertension) Hyperlipemia CVA (cerebral vascular accident) Surgical History Hx of colonoscopy History of hysterectomy S/P cholecystectomy History of appendectomy Family History Mother Stroke Hypertension Father No problems noted. Paternal Grandmother Cancer Social History Household Members Other:: , 2 alive adult children, Housing: House Patient Tobacco Use Status: Never used Tobacco e-Cigarette/Vaping Use: Never Used service: No Current occupational status: retired Cognitive needs: No Hearing needs: No Vision needs: Yes Questionnaire Medicare Wellness Checkup [age] What gender do you identify with?: female During the past 4 weeks, how much have you been bothered by emotional problems such as feeling anxious, depressed, irritable, sad or downhearted, and blue?: not at all During the past 4 weeks, has your physical & emotional health limited your social activities with family, friends, neighbors, or groups?: not at all During the past 4 weeks, how much bodily pain have you generally had?: mild pain During the past 4 weeks, was someone available to help you if you needed & wanted help?: yes, as much as I wanted During the past 4 weeks, what was the hardest physical activity you could do for at least 2 minutes?: moderate Can you get to places out of walking distance without help? (For eg., can you travel alone on buses, taxis or drive your car?): Yes Can you go shopping for groceries or clothes without someone's help?: Yes Can you prepare your own meals?: Yes Can you do your housework without help?: Yes Because of any health problems, do you need the help of another person with your personal care needs such as eating, bathing, dressing or getting around the house?: No Can you handle your own money without help?: Yes During the past 4 weeks, how would you rate your health in general?: very good During the past 4 weeks how have things been going for you?: very well; could hardly better Are you having difficulties driving your car?: no Do you always fasten your seat belt when you are in a car?: yes, usually During past 4 weeks, have you been bothered by the following: never: Sexual problems?, Trouble eating well?, Teeth or denture problems?, Problems using the telephone? and Tiredness or fatigue? and sometimes: Falling or dizzy when standing up Have you fallen 2 or more times in the past year?: No Are you afraid of falling?: No Are you a smoker?: no During the past 4 weeks, how many drinks of wine, beer, or other alcoholic beverages did you have?: 1 drink or less per week Do you exercise for about 20 minutes 3 or more times a week?: yes, some of the time Have you been given information to help with the following?: yes: Hazards in your house that might hurt you? and yes: Keeping track of your medications? How often do you have trouble taking medicines the way you have been told to take them?: I always take medicine as prescribed How confident are you that you can control & manage most of your health problems?: very confident What is your race?: White Mini Mental State Exam (MMSE) Orientation What is the (year) (season) (date) (day) (month)?: year, season, date, day and month Where are we (state) (county) (town or city) (hospital) (floor)?: state, county, town or city, hospital/clinic and floor Registration Name of 3 unrelated objects clearly and slowly, then ask patient to repeat all 3 of them. (1st repeat determines score. Make sure they can repeat all three): object 1, object 2 and object 3 Attention & Calculation (CHOOSE ONE) Spell WORLD backwards (DLROW): 5 letters Recall Ask patient to repeat the 3 items from question #3.: object 1, object 2 and o bject 3 Language Show patient a wristwatch & ask what it is. Repeat for pencil.: watch and pencil Ask the patient to repeat the phrase 'No ifs, ands, or buts' after you.: correct Ask the patient to 'take a piece of paper with their right hand' 'fold paper in half' 'place paper on floor': take paper in right hand, fold paper in half and place paper on floor Print the sentence 'CLOSE YOUR EYES' on a piece. If patient actually closes eyes then score.: followed written direction Give patient a blank piece of paper & ask to write a sentence. Score if it contains a noun & verb.: sentence contains subject and verb Score Score: 29 Activity of Daily Living Bathing - sponge bath, tub bath or shower: receives no assistance (gets in/out by self, if usual bathing means Dressing - getting clothes from closets & drawers, including inner/outer garments & fasteners.: gets clothes & gets completely dressed without help Toileting - going to the 'toilet room' for urine/bowel elimination & cleaning self/arranging clothes: goes to toilet room, cleans self, arranges clothes without help Transfer: moves in & out of bed and chair without help (may use support object) Continence: controls urination/bowel movements completely by self Feeding: feeds self without help Total Score: 0 Information obtained from: patient Using telephone: independent Traveling: independent Shopping: independent Preparing meals: independent Housework: independent Taking medicine: independent Managing money: independent PHQ-9 Over the last 2 weeks, how often have you been bothered by any of the following problems? 1. Little interest or pleasure in doing things: not at all 2. Feeling down, depressed, or hopeless: not at all 3. Trouble falling or staying asleep, or sleeping too much: several days 4. Feeling tired or having little energy: not at all 5. Poor appetite or overeating: not at all 6. Feeling bad about yourself - or that you are a failure or have let yourself or your family down: not at all 7. Trouble concentrating on things, such as reading the newspaper or watching television: not at all 8. Moving or speaking so slowly that other people could have noticed. Or the opposite - being so fidgety or restless that you have been moving around a lot more than usual: not at all 9. Thoughts that you would be better off or of hurting yourself in some way: not at all Total score: 1 Depression Screening Interpretation: Negative Depression Screening Done: Yes 13379 - PHQ-9 Billing: Yes Source: Developed by Drs. Carlton Dobbs, Jessica Duke, Alex Vargas and colleagues, with an educational priya from [employer]. Review of Systems Const All systems reviewed & are unremarkable except as noted in HPI and below ENT Reports no additional complaints Card Reports no additional complaints Resp Reports no additional complaints GI Reports no additional complaints Reports no additional complaints Physical Exam Vital Signs: Last Vital Signs Pulse 70 12/10/23 08:11 BP 108/70 12/10/23 08:11 Pulse Ox 100 12/10/23 08:11 Oxygen Delivery Method Room Air 12/10/23 08:11 BMI result Body Mass Index 21.7 Const General: no acute distress HEENT Head: Yes normal to inspection Ears: hearing grossly normal bilaterally Eyes General: appearance normal, both eyes and all related structures Resp Effort & Inspection: normal respiratory effort Auscultation: clear to auscultation bilaterally Cardio Rhythm: regular rhythm Heart sounds: S1 normal heart sound present and S2 normal heart sound present GI Inspection: Yes normal to inspection Palpation (GI): Soft to palpation Percussion: Yes normal to percussion Auscultation: normal bowel sounds Extrem General: Yes no clubbing, cyanosis or edema Assessment & Plan Assessment & Plan (1) CVA (cerebral vascular accident): Comment: 2019, Anil, on statin Code(s): I63.9 - Cerebral infarction, unspecified Plan: Continue atorvastatin (2) Annual physical exam: Code(s): Z00.00 - Encounter for general adult medical examination without abnormal findings Plan: Well-balanced diet regular physical activity discussed with the patient Orders: Orders Comprehensive [place]. Panel Fast 1 Year I63.9 - Cerebral infarction, unspecified, Z00.00 - Encounter for general adult medical examination without abnormal findings Complete Blood Count Auto Diff 1 Year I63.9 - Cerebral infarction, unspecified, Z00.00 - Encounter for general adult medical examination without abnormal findings Lipid Panel 1 Year I63.9 - Cerebral infarction, unspecified, Z00.00 - Encounter for general adult medical examination without abnormal findings Vitamin D 25-OH Total 1 Year I63.9 - Cerebral infarction, unspecified, Z00.00 - Encounter for general adult medical examination without abnormal findings UA CC w/rflx Micro + Cult 1 Year I63.9 - Cerebral infarction, unspecified, Z00.00 - Encounter for general adult medical examination without abnormal findings Medications: Changed From gabapentin 100 -200 mg orally bedtime; 60 caps 2RF To gabapentin 100 mg QHS 90 caps 3RF Refilled lisinopril 5 mg PO DAILY 90 tabs 3RF Quality Reporting (2019) Depression/Bipolar (159/160/161/177) PHQ-9: Total score: 1 Coding Level of Care Code Medicare Subsequent (G0439) Diagnoses CVA (cerebral vascular accident) I63.9 Annual physical exam Z00.00 CPT Codes Advance Care Planning - Time spent: 1-15 minutes, not on file ([id number]) Advance Care Planning Advance Care Planning discussion: Exists, not on file Forms completed: Health Care Proxy Time spent: 1-15 minutes, not on file
== END 2023-12-10 08:43 | disposition home or self-care (01) ==
PROVIDERS: PCP Internal Medicine; Visit Provider Internal Medicine
DX: Z00.00 Encounter for general adult medical examination without abnormal findings (principal); Z86.73 Personal history of transient ischemic attack (TIA), and cerebral infarction without residual deficits

== ENCOUNTER → 2023-12-10 07:53 | Outpatient (BNVA) | payer MEDICARE, OTHER, SELFPAY | PROVIDERS: PCP Internal Medicine; Visit Provider Internal Medicine ==

== ENCOUNTER 2024-03-11 00:16 | Observation (INO) | payer MEDICARE, OTHER, SELFPAY ==
[2024-03-11] VITALS (11 sets, daily range): BP systolic 111–145; BP diastolic 55–86; PULSE 79–115; RESP 16–20; TEMP 36.5–36.9; O2SAT 94–100; BMI 22.8; BMI 22.4
--- NOTE | ~2024-03-11 | XR_ITS ---
CLINICAL HISTORY: chest pain 1 view chest x-ray Comparison: Chest x-ray from 05/19/2018 Findings: No consolidation, pneumothorax, or pleural effusion. Imaged mediastinum is unchanged. Degenerative changes include imaged AC joints. IMPRESSION: No consolidation. This document has been electronically signed by: Brian Calvin MD on 03/11/2024 01:14:26
--- NOTE | 2024-03-11 00:20 | ECG_ITS ---
Test Reason : CP Blood Pressure : */* mmHG Vent. Rate : 93 BPM Atrial Rate : 93 BPM P-R Int : 156 ms QRS Dur : 82 ms QT Int : 370 ms P-R-T Axes : 69 35 69 degrees QTcB Int : 460 ms Normal sinus rhythm Nonspecific ST abnormality Abnormal ECG When compared with ECG of 19-May-2018 22:28, No significant change was found Referred By: Generic ED Physician Electronically Signed By: MURRAY SHUKLA
--- NOTE | 2024-03-11 00:37 | MHC.EDTECH ---
Patient BIBA,changed into hospital attire,vitals taken,pt placed on the toll lineman,EKG taken per order signed by provider,labs and sars/flu/rsv obtained and sent to lab, at bedside,call harris in reach
[2024-03-11 00:40] LABS: MANUAL DIFF FLAG NO
--- NOTE | 2024-03-11 00:43 | ED.CHESTPAIN ---
HPI - Chest Pain General Chief Complaint: Chest Pain Stated Complaint: CHEST PAIN Time Seen by Provider: 03/11/24 00:41 Source: patient Mode of arrival: EMS Limitations: no limitations History of Present Illness ED Provider: HPI narrative: Patient's history of hypertension no known coronary artery disease comes here for left-sided chest pain while she was in the bed felt like muscle cramping never had similar pain in the past patient was given 2 nitro and 324 mg of aspirin had hard to breathe patient does have occasional cough initial EKG without any ischemic changes patient is not on any aspirin had a CVA with right-sided weakness in 2019, no prior coronary artery disease Related Data Home Medications ?Medication ?Instructions ?Recorded ?Confirmed cholecalciferol (vitamin D3) PO 07/25/21 12/10/23 Previous Rx's ?Medication ?Instructions ?Recorded atorvastatin 10 mg tablet 10 mg PO DAILY #90 tabs 11/10/23 gabapentin 100 mg capsule See Rx Instructions PO BEDTIME #90 12/10/23 caps lisinopril 5 mg tablet 5 mg PO DAILY #90 tabs 12/10/23 Allergies Allergy/AdvReac Type Severity Reaction Status Date / Time codeine [CODEINE] Allergy Unknown SHORTNESS Unverified 03/11/24 00:33 OF BREATH Review of Systems Review of Systems: Yes all other systems are reviewed and are negative PMFSH Past Medical History Medical History Hyperglycemia Basal cell carcinoma DJD (degenerative joint disease), cervical HTN (hypertension) Hyperlipemia CVA (cerebral vascular accident) Surgical History Hx of colonoscopy History of hysterectomy S/P cholecystectomy History of appendectomy Family History Family History Mother Stroke Hypertension Father No problems noted. Paternal Grandmother Cancer Social History Social History Household Members Other:: , 2 alive adult children, Housing: House Alcohol intake: current Alcohol intake frequency: a few times a week Alcohol type: wine Patient Tobacco Use Status: Never used Tobacco Smoked in Last 30 Days: No e-Cigarette/Vaping Use: Never Used Use of substances other than those prescribed or required for medical reasons: No Any prior treatment program specific to substance use: No Advance Directives: No Advance Directives Information Provided: Yes Do you have a plan to hurt others: No Plan service: No Current occupational status: retired Cognitive needs: No Hearing needs: No Vision needs: Yes Physical Exam Vital Signs: Vital Signs: Last Vital Signs Temp 98.1 F 03/11/24 05:05 Pulse 90 03/11/24 05:05 Resp 19 03/11/24 05:05 BP 114/65 03/11/24 05:05 Pulse Ox 97 03/11/24 05:05 O2 Del Method Room Air 03/11/24 05:05 BMI result Body Mass Index 22.8 Appearance: Alert. Oriented X3. No acute distress. Eyes: No pallor or icterus ENT: Pharynx normal. Oral Mucosa moist Neck: Normal inspection. Neck supple. CVS: Normal heart rate and rhythm. Pulses normal. Respiratory: No respiratory distress. Equal air entry bilateral, no wheezing/rales/rhonchi Abdomen: Soft and nontender. Bowel sounds are present, no mass palpable, no CVA tenderness Skin: Skin warm and dry. Normal skin color. Normal skin turgor. Extremities: No lower extremity edema. No calf tenderness Neuro: Oriented X 3. No motor deficit. No sensory deficit.No cerebellar signs , cranial nerves II-XII intact Medications Administered Discontinued Medications Generic Name Dose Route Start Last Admin Trade Name Freq PRN Reason Stop Dose Admin Nitroglycerin 0.5 inch 03/11/24 01:34 03/11/24 02:56 Nitroglycerin 2 % Oint 1 Gm Packet TRANSDERMA 03/11/24 01:35 0.5 inch ONCE ONE Administration Medical Decision Making Medical Decision Making [facility] Narrative: Patient with chest heaviness started at 23:00 relieved after nitroglycerin with a history of hypotension and CVA 2 sets of cardiac enzymes without any delta changes but patient chest pain seems ACS with history of CVA patient's chest pain relieved after nitro paste will admit patient for ACS Differential Diagnosis Differential Diagnoses: The differential diagnosis associated with the presentation includes ACS/PE/pleuritic chest/ Admission/Observation Consideration of admission/observation: Escalation of care including admission/observation considered Consult Healthcare Provider Management of the patient was discussed with: Hospitalist Lab Data 03/11/24 00:36 03/11/24 00:36 Labs: Lab Results 03/11/24 03/11/24 03/11/24 Range/Units 00:36 00:41 02:11 WBC 11.3 H (4.8-10.8) X10*3/uL RBC 4.01 L (4.20-5.50) X10*6/uL Hgb 12.4 (12.0-16.0) g/dl Hct 36.4 L (37.0-47.0) % MCV 90.8 (80.0-98.0) fL MCH 30.9 (27.0-33.0) pg MCHC 34.1 (31.0-35.0) g/dl RDW 13.2 (11.0-16.0) % Plt Count 249 (160-400) X10*3/uL MPV 9.6 (9.4-12.3) fL Immature Gran % (Auto) 0.3 (0.0-0.4) % Neut % (Auto) 62.3 (45-73) % Lymph % (Auto) 25.8 (20-40) % [place] % (Auto) 9.1 (2-11) % Eos % (Auto) 2.1 (0-4) % Baso % (Auto) 0.4 (0-2) % Lymph # (Auto) 2.9 (1.2-4.9) X10*3/uL [place] # (Auto) 1.0 (0.1-1.2) X10*3/uL Eos # (Auto) 0.2 (0.0-0.4) X10*3/uL Baso # (Auto) 0.1 (0.0-0.2) X10*3/uL Abs Immat Gran (auto) 0.03 (0.00-0.03) X10*3/uL Absolute Neuts (auto) 7.0 (2.0-8.3) x10*3/uL Absolute Nucleated RBC 0.000 (0.0-0.012) X10*3/uL Nucleated RBC % (auto) 0.0 (0.0-0.2) /100WBC PT 11.4 (10.9-12.4) SEC INR 1.0 (0.9-1.1) APTT 28.5 (26.0-36.8) SEC D-Dimer High Sensitivty < 150 NG/ML Sodium 143 (135-145) mmol/L Potassium 3.4 (3.3-5.1) mmol/L Chloride 111 H (96-108) mmol/L Carbon Dioxide 23 (22-29) mmol/L Anion Gap 12 (12-20) BUN 14 (9-16) mg/dL Creatinine 0.71 (0.5-1.4) mg/dL Estim Creat Clear Calc 53.2 Estimated GFR > 60 Random Glucose 119 H (60-115) mg/dL Calcium 8.9 (8.4-10.2) mg/dL Troponin I High Sens 8.1 (<3.5-17.0) ng/L Influenza Type A (PCR) NEGATIVE (Negative) Influenza Type B (PCR) NEGATIVE (Negative) RSV RNA Qual (PCR) NEGATIVE (Negative) SARS-CoV-2 RNA (RT-PCR) NEGATIVE (Negative) 03/11/24 Range/Units 02:55 WBC (4.8-10.8) X10*3/uL RBC (4.20-5.50) X10*6/uL Hgb (12.0-16.0) g/dl Hct (37.0-47.0) % MCV (80.0-98.0) fL MCH (27.0-33.0) pg MCHC (31.0-35.0) g/dl RDW (11.0-16.0) % Plt Count (160-400) X10*3/uL MPV (9.4-12.3) fL Immature Gran % (Auto) (0.0-0.4) % Neut % (Auto) (45-73) % Lymph % (Auto) (20-40) % [place] % (Auto) (2-11) % Eos % (Auto) (0-4) % Baso % (Auto) (0-2) % Lymph # (Auto) (1.2-4.9) X10*3/uL [place] # (Auto) (0.1-1.2) X10*3/uL Eos # (Auto) (0.0-0.4) X10*3/uL Baso # (Auto) (0.0-0.2) X10*3/uL Abs Immat Gran (auto) (0.00-0.03) X10*3/uL Absolute Neuts (auto) (2.0-8.3) x10*3/uL Absolute Nucleated RBC (0.0-0.012) X10*3/uL Nucleated RBC % (auto) (0.0-0.2) /100WBC PT (10.9-12.4) SEC INR (0.9-1.1) APTT (26.0-36.8) SEC D-Dimer High Sensitivty NG/ML Sodium (135-145) mmol/L Potassium (3.3-5.1) mmol/L Chloride (96-108) mmol/L Carbon Dioxide (22-29) mmol/L Anion Gap (12-20) BUN (9-16) mg/dL Creatinine (0.5-1.4) mg/dL Estim Creat Clear Calc Estimated GFR Random Glucose (60-115) mg/dL Calcium (8.4-10.2) mg/dL Troponin I High Sens 7.0 (<3.5-17.0) ng/L Influenza Type A (PCR) (Negative) Influenza Type B (PCR) (Negative) RSV RNA Qual (PCR) (Negative) SARS-CoV-2 RNA (RT-PCR) (Negative) Independent Interpretation I performed an independent interpretation of an: EKG Interpretation: Normal sinus rhythm heart rate 93 beats per minute normal intervals normal axis no acute ST-T changes no acute ischemia Discharge Plan Discharge Clinical Impression: Acute coronary syndrome Patient Disposition: Admitted As Inpatient
[2024-03-11 00:49] LABS: Basophils Absolute Auto 0.1 X10*3/uL (0.0-0.2); Basophils Percent Auto 0.4 % (0-2); Eosinophils Absolute Auto 0.2 X10*3/uL (0.0-0.4); Eosinophils Percent Auto 2.1 % (0-4); Hematocrit 36.4 % (37.0-47.0); Hemoglobin 12.4 g/dl (12.0-16.0); Imm Gran Abs Auto 0.03 X10*3/uL (0.00-0.03); Imm Gran Pct Auto 0.3 % (0.0-0.4); Lymphocytes Absolute Auto 2.9 X10*3/uL (1.2-4.9); Lymphocytes Percent Auto 25.8 % (20-40); Mean Corpuscular HGB Conc 34.1 g/dl (31.0-35.0); Mean Corpuscular Hemoglobin 30.9 pg (27.0-33.0); Mean Corpuscular Volume 90.8 fL (80.0-98.0); Mean Platelet Volume 9.6 fL (9.4-12.3); Monocytes Percent Auto 9.1 % (2-11); Neutrophils Percent Auto 62.3 % (45-73); Platelet Count 249 X10*3/uL (160-400); Red Blood Count 4.01 X10*6/uL (4.20-5.50); Red Cell Distribution Width 13.2 % (11.0-16.0); White Blood Count 11.3 X10*3/uL (4.8-10.8)
[2024-03-11 00:53] LABS: Anion Gap 12 (12-20); Blood Urea Nitrogen 14 mg/dL (9-16); Calcium 8.9 mg/dL (8.4-10.2); Carbon Dioxide 23 mmol/L (22-29); Chloride 111 mmol/L (96-108); Creatinine Clr Calc Pharmacy 53.2; Estimated Glomerular Filt Rate > 60; Glucose Random 119 mg/dL (60-115); Potassium 3.4 mmol/L (3.3-5.1); Sodium 143 mmol/L (135-145)
[2024-03-11 01:00] LABS: Troponin-I High Sensitivity 8.1 ng/L (<3.5-17.0)
[2024-03-11 01:26] LABS: Influenza A PCR NEGATIVE (Negative); Influenza B PCR NEGATIVE (Negative); Resp Syncy Virus RNA Qual PCR NEGATIVE (Negative); SARS COV2 PCR INHOUSE NEGATIVE (Negative)
[2024-03-11 02:26] LABS: Prothrombin Time 11.4 SEC (10.9-12.4)
[2024-03-11 02:29] LABS: Partial Thromboplastin Time 28.5 SEC (26.0-36.8)
[2024-03-11 02:51] LABS: D Dimer High Sensitivity < 150 NG/ML
[2024-03-11] MEDS: Nitroglycerin 2 % Oint 1 GM Packet 0.5 INCH TRANSDERMA (02:56)
--- NOTE | 2024-03-11 04:08 | PC.NURSE ---
dressing taken down and being seen by provider at bedside. pt skin red warm and painful to touch to his right foot.
--- NOTE | 2024-03-11 05:06 | MHC.EDTECH ---
Rounds and vitals completed,patient is resting quietly,belongings list completed,copy placed in chart,call harris in reach
--- NOTE | 2024-03-11 05:25 | P.HPHOSP_ITS ---
History of Present Illness Date of Service: 03/11/24 Attending physician on admission: Pacheco Collazo Chief Complaint: chest pain Patient is a 74-year-old female with a past medical history significant for CAD, basal cell carcinoma, DJD, HTN, HLD and CVA in 2019, who presented to the ED last night due to left-sided chest pain. She reports it began around 23:00 where she was lying on her side resting. She describes it as a soreness with cramping on the left side. There was no additional symptoms including headache, jaw pain, shoulder pain, numbness, tingling, nausea or abdominal pain. She has never had a history of similar in the past but reports that she has had a lot of heartburn and acid reflux recently. Review of Systems 2 Constitutional: Constitutional: Denies body ache(s), Denies chills, Denies fatigue, Denies fever(s) and Denies headache(s) Eyes: Eyes: Denies change in vision ENT: Denies headache(s), Denies nasal congestion, Denies nasal discharge and Denies sore throat Cardiovascular: Cardiovascular: Reports chest pain at rest, Denies syncope, Denies rapid heart rate, Denies leg edema and Denies dyspnea Respiratory: Respiratory: Denies chest congestion, Denies cough, Denies dyspnea and Denies wheezing Gastrointestinal: Gastrointestinal: Denies constipation, Denies GI cramping, Denies diarrhea, Denies nausea and Denies vomiting Genitourinary: Genitourinary: Denies dysuria and Denies urinary urgency Musculoskeletal: Musculoskeletal: Denies myalgias Integumentary/Breasts: Skin/Breast: Denies rash Neurologic: Denies confusion, Denies syncope and Denies headache(s) Psychiatric: Psychiatric: Denies confusion Endocrine: Endocrine: Denies fatigue Hematologic/Lymphatic: Hematologic/Lymphatic: Denies easy bleeding and Denies easy bruising Allergic/Immunologic: Allergic/Immunologic: Denies wheezing PMFSH Medical History Hyperglycemia Basal cell carcinoma DJD (degenerative joint disease), cervical HTN (hypertension) Hyperlipemia CVA (cerebral vascular accident) Functional capacity: independent ambulation Family History Mother Stroke Hypertension Father No problems noted. Paternal Grandmother Cancer Surgical History Hx of colonoscopy History of hysterectomy S/P cholecystectomy History of appendectomy Social History Household Members Other:: , 2 alive adult children, Housing: House Alcohol intake: current Alcohol intake frequency: a few times a week Alcohol type: wine Patient Tobacco Use Status: Never used Tobacco Smoked in Last 30 Days: No e-Cigarette/Vaping Use: Never Used Use of substances other than those prescribed or required for medical reasons: No Any prior treatment program specific to substance use: No Advance Directives: No Advance Directives Information Provided: Yes Do you have a plan to hurt others: No Plan service: No Current occupational status: retired Cognitive needs: No Hearing needs: No Vision needs: Yes Narrative: No smoking, drinks a glass of wine 3 times a week, no drug use Meds Allergies Allergy/AdvReac Type Severity Reaction Status Date / Time codeine [CODEINE] Allergy Unknown SHORTNESS Unverified 03/11/24 00:33 OF BREATH Active Medications: Current Medications Acetaminophen (Acetaminophen 325 Mg Tablet) 975 mg PO Q6H PRN PRN Reason: Pain, Mild 1-3,fever,headache Al Hydroxide/Mg Hydroxide (Magnesium Hydrox/Alum Hydrox 30 Ml Oral.Susp) 30 ml PO Q4H PRN PRN Reason: Heartburn Enoxaparin Sodium (Enoxaparin Sodium 40 Mg/0.4 Ml Syringe) 40 mg SUBCUT Q24H EARLINE Magnesium Hydroxide (Milk Of Magnesia 30 Ml Oral.Susp) 30 ml PO DAILY PRN PRN Reason: Constipation Melatonin (Melatonin 3 Mg Tablet) 6 mg PO BEDTIME PRN PRN Reason: Insomnia Ondansetron HCl (Ondansetron Hcl 4 Mg/2 Ml Vial) 4 mg IVPUSH Q8H PRN PRN Reason: Nausea and Vomiting Sodium Chloride (0.9 % Sodium Chloride Flush 3 Ml Syringe) 3 ml IVFLUSH QSHIFT EARLINE Home Medications ?Medication ?Instructions ?Recorded ?Confirmed ?Last Taken ?Type cholecalciferol (vitamin D3) PO 07/25/21 12/10/23 Unknown History Physical Exam 2 Vital Signs and Narrative: Vital Signs: Last Vital Signs Temp 98.1 F 03/11/24 05:05 Pulse 90 03/11/24 05:05 Resp 19 03/11/24 05:05 BP 114/65 03/11/24 05:05 Pulse Ox 97 03/11/24 05:05 O2 Del Method Room Air 03/11/24 05:05 BMI result Body Mass Index 22.8 General: AOx3, no acute distress Resp: CTA bilaterally CVS: S1, S2, RRR GI: +BS, NT, no distention Skin: Warm, dry Neuro: Cranial nerves II-XII grossly intact bilaterally. Motor grossly intact bilaterally Extremities: No LE edema Psych: Appropriate affect Const: General: No confusion Orientation/consciousness: No confusion Neuro: General: No confusion Results Labs 03/11/24 00:36 03/11/24 00:36 Labs: Laboratory Results - last 24 hr 03/11/24 03/11/24 03/11/24 00:36 00:41 02:11 MCV 90.8 MCH 30.9 MCHC 34.1 RDW 13.2 Plt Count 249 MPV 9.6 Immature Gran % (Auto) 0.3 Neut % (Auto) 62.3 Lymph % (Auto) 25.8 [place] % (Auto) 9.1 Eos % (Auto) 2.1 Baso % (Auto) 0.4 Lymph # (Auto) 2.9 [place] # (Auto) 1.0 Eos # (Auto) 0.2 Baso # (Auto) 0.1 Abs Immat Gran (auto) 0.03 Absolute Neuts (auto) 7.0 Absolute Nucleated RBC 0.000 Nucleated RBC % (auto) 0.0 PT 11.4 INR 1.0 APTT 28.5 D-Dimer High Sensitivty < 150 Anion Gap 12 Estim Creat Clear Calc 53.2 Estimated GFR > 60 Random Glucose 119 H Calcium 8.9 Troponin I High Sens 8.1 Influenza Type A (PCR) NEGATIVE Influenza Type B (PCR) NEGATIVE RSV RNA Qual (PCR) NEGATIVE SARS-CoV-2 RNA (RT-PCR) NEGATIVE 03/11/24 02:55 MCV MCH MCHC RDW Plt Count MPV Immature Gran % (Auto) Neut % (Auto) Lymph % (Auto) [place] % (Auto) Eos % (Auto) Baso % (Auto) Lymph # (Auto) [place] # (Auto) Eos # (Auto) Baso # (Auto) Abs Immat Gran (auto) Absolute Neuts (auto) Absolute Nucleated RBC Nucleated RBC % (auto) PT INR APTT D-Dimer High Sensitivty Anion Gap Estim Creat Clear Calc Estimated GFR Random Glucose Calcium Troponin I High Sens 7.0 Influenza Type A (PCR) Influenza Type B (PCR) RSV RNA Qual (PCR) SARS-CoV-2 RNA (RT-PCR) Assessment and Plan (1) Chest pain at rest: Status: Acute Plan Patient is a 74-year-old female with a past medical history significant for CAD, basal cell carcinoma, DJD, HTN, HLD and CVA in 2019, who presented to the ED last night due to left-sided chest pain. acute chest pain, improvement of pain after 1 hour - WBC 11.3, likely reactive - troponin 8.1, 7.0 on repeat - EKG with NSR, no ST elevations - D-dimer negative - patient given nitro x2 and aspirin 324 by EMS with improvement - additional nitroglycerin given in ED - cardiology consult - lipids added to labs - admit to observation with telemetry HTN - continue lisinopril CAD - continue statin full code VTE prophy: lovenox Pt with acute chest pain and hx of CVA, admit for observation and cardiology w/u. Quality Stroke Does the patient have a stroke diagnosis?: No VTE Prior VTE?: No VTE Risk Level:: Medical - moderate - high VTE Device Contraindication: Treatment Not Indicated VTE Drug Contraindication: N/A - Med Ordered
--- NOTE | 2024-03-11 07:00 | CA_ITS ---
Transthoracic Echocardiogram Patient (Last, First, Middle): Kortney Jeter L Gender: Female Date of : 1950 Age: 74 Procedure Date: 03/11/2024 Procedure Type: Transthoracic Echocardiogram Location: ER Height: 152.4 cm Weight: 54.43 kg BSA: 1.50 m2 Heart Rate: bpm BP: 129 / 75 mmHg Land Development Project Manager: Referring MD: Miky Lui MD Symptoms: chest pain Study Quality: Good ECG Rhythm: Sinus Conclusions: - The left ventricular systolic function is normal. The calculated ejection fraction is 63% by biplane method. - No obvious valvular pathology seen on this study. Findings Left Ventricle Normal left ventricular cavity size. The left ventricular systolic function is normal. The calculated ejection fraction is 63% by biplane method. There is no evidence of regional wall motion abnormalities. Diastolic function is normal for age. There is mild septal and mild basal asymmetric hypertrophy. Right Ventricle Normal right ventricular cavity size and systolic function. Atria Both atria are normal in size. Aortic Valve There is a normal trileaflet aortic valve. There is no aortic valve stenosis. There is no aortic valve regurgitation. Mitral Valve There is mild anterior mitral leaflet thickening. There is trace mitral valve regurgitation. There is no mitral valve stenosis. Pulmonic Valve The pulmonic valve is likely normal. Tricuspid Valve There is trace tricuspid valve regurgitation. There is no evidence of pulmonary hypertension. Great Vessels The asc aorta is normal in size. Venous The inferior vena cava is normal in size and collapses greater than 50% with inspiration. Pericardium/Pleural There is no evidence of pericardial effusion. Prior Study Comparison No significant change compared to prior study dated: 05/20/2018. Recommendations, Care & Conclusions No obvious valvular pathology seen on this study. Measurements 2D Linear Measurements IVSd: 1.02 0.6-0.9/0.6-1.0 cm LVIDd: 3.94 3.9-5.3/4.2-5.9 cm LVIDd Index: 2.63 2.4-3.2/2.2-3.1 cm/m2 LVIDs: 2.22 2.0-3.6 cm LVPWd: 0.95 0.7-1.1 cm Ao Root: 3.40 2.1-3.5 cm LA Diam: 3.00 2.7-3.8/3.0-4.0 cm LAIDs Index: 2.00 1.5-2.3 cm/m2 LV Mass: 150.85 67-162/88-224 g LV Mass Index: 100.57 43-95/49-115 g/m2 LVOT Diam: 2.00 3.0+(-)1.3 cm 2D Systolic Function EF 4C: 60.30 >55% EF 2C: 66.10 >55% EF BiP: 62.50 >55% Mitral Valve MV Pk E: 0.37 MV PK A: 0.74 MV Decel Time: 151.00 E/A: 0.50 E'Lateral: 8.49 E'Medial: 5.98 E/E' Med: 6.20 E/E' Lat: 4.40 PHT: 44.00 MVA PHT: 5.00 Decel [place]: 2.46 Aortic Valve AoV Pk Fran: 1.13 AoV Mn Fran: 0.77 AoV VTI: 0.23 AoV Pk Grad: 5.00 Aov Mn Grad: 3.00 [place] Cont.VTI: 2.12 LVOT LVOT Pk Fran: 0.79 LVOT Mn Fran: 0.54 LVOT VTI: 0.16 LVOT Pk Grad: 2.00 LVOT Mn Grad: 1.00 LVOT Diam: 2.00 LVOT Area: 3.14 Diastolic Function MV Pk E: 0.37 MV Pk A: 0.74 E/A: 0.50 E'Medial: 5.98 E/E' Med: 6.20 E' Laterial: 8.49 E/E' Lat: 4.40 Right Ventricle TAPSE (mm): 23.00 TVS' Fran: 11.00 Tricuspid Valve TR Pk Fran: 2.16 TR Pk Grad: 19.00 RA Press: 3.00 RVSP: 22.00 Great Vessels Aorta Ao Root-2D: 3.40 2.0-3.7 cm Ao Asc: 3.40 2.1-3.4 cm Pulmonary Valve PV Pk Fran: 0.82 Peak PV Grad: 3.00 Updated in Other Vendor System with Status of Final Miyk Lui MD electronically signed on 03/11/2024 3:59:57 PM with status of Final
--- NOTE | 2024-03-11 09:15 | PHA.MEDREC ---
Pharmacy Consult ? Medication Reconciliation Pharmacy has completed the medication reconciliation spoke to patient who confirmed all meds and last taken yesterday.
[2024-03-11] MEDS: Enoxaparin Sodium 40 MG/0.4 ML SYRINGE SUBCUT (09:19)
--- NOTE | 2024-03-11 09:46 | PM.CNCAR ---
History of Present Illness History of Present Illness Date of Service: 03/11/24 Chief complaint: Chest Pain Narrative: This is a cardiology consultation regarding chest pain. Patient denies any history of coronary artery disease or myocardial infarction or cardiomyopathy or in fact any other cardiac issues in the past. She states that last night, she developed a discomfort in the left side of the chest. She points to the area in the lower part of left chest. She tried to turn in bed to get comfortable but could not feel better and hence came to the ER. She states that she received nitroglycerin sublingually and after that, the pain improved. Currently, she is pain-free. She states she feels good. Otherwise, she also describes some discomfort in the epigastric area which apparently gets worse with breathing. However, she states that that discomfort is different from the left-sided chest pain but not clear. Review of Systems Review of Systems: Yes all other systems are reviewed and are negative Constitutional: Constitutional: Reports as per HPI and Reports no additional constitutional complaints Eyes: Eyes: Reports as per HPI and Denies no additional eye complaints ENT: Denies system reviewed and no additional complaints, except as documented and Reports as per HPI Cardiovascular: Cardiovascular: Reports as per HPI, Reports no additional cardiovascular complaints, Denies acrocyanosis, Denies cool extremities, Reports chest pain, Denies leg edema, Denies lightheadedness, Denies palpitations and Denies dyspnea Respiratory: Respiratory: Reports as per HPI, Denies no additional respiratory complaints and Denies dyspnea Gastrointestinal: Gastrointestinal: Reports as per HPI and Denies no additional gastrointestinal complaints Genitourinary: Genitourinary: Reports as per HPI Musculoskeletal: Musculoskeletal: Reports no additional musculoskeletal complaints and Reports as per HPI Integumentary/Breasts: Skin/Breast: Reports system reviewed and no additional complaints, except as docu Neurologic: Reports system reviewed and no additional complaints, except as documented and Reports as per HPI Psychiatric: Psychiatric: Reports no additional psychiatric complaints and Reports as per HPI Endocrine: Endocrine: Reports no additional endocrine complaints, Reports as per HPI and Denies palpitations Hematologic/Lymphatic: Hematologic/Lymphatic: Reports no additional hematologic/lymphatic complaints and Reports as per HPI Allergic/Immunologic: Allergic/Immunologic: Reports no additional allergic/immunologic complaints and Reports as per HPI [facility] Past Medical History Medical History Hyperglycemia Basal cell carcinoma DJD (degenerative joint disease), cervical HTN (hypertension) Hyperlipemia CVA (cerebral vascular accident) Family History Family History Mother Stroke Hypertension Father No problems noted. Paternal Grandmother Cancer Surgical History Surgical History Hx of colonoscopy History of hysterectomy S/P cholecystectomy History of appendectomy Social History Social History Household Members Other:: , 2 alive adult children, Housing: House Alcohol intake: current Alcohol intake frequency: a few times a week Alcohol type: wine Patient Tobacco Use Status: Never used Tobacco Smoked in Last 30 Days: No e-Cigarette/Vaping Use: Never Used Use of substances other than those prescribed or required for medical reasons: No Any prior treatment program specific to substance use: No Advance Directives: No Advance Directives Information Provided: Yes Do you have a plan to hurt others: No Plan service: No Current occupational status: retired Cognitive needs: No Hearing needs: No Vision needs: Yes Meds Allergies Allergy/AdvReac Type Severity Reaction Status Date / Time codeine [CODEINE] Allergy Unknown SHORTNESS Unverified 03/11/24 00:33 OF BREATH Active Medications: Current Medications Acetaminophen (Acetaminophen 325 Mg Tablet) 975 mg PO Q6H PRN PRN Reason: Pain, Mild 1-3,fever,headache Al Hydroxide/Mg Hydroxide (Magnesium Hydrox/Alum Hydrox 30 Ml Oral.Susp) 30 ml PO Q4H PRN PRN Reason: Heartburn Enoxaparin Sodium (Enoxaparin Sodium 40 Mg/0.4 Ml Syringe) 40 mg SUBCUT Q24H EARLINE Last Admin: 03/11/24 09:19 Dose: 40 mg Magnesium Hydroxide (Milk Of Magnesia 30 Ml Oral.Susp) 30 ml PO DAILY PRN PRN Reason: Constipation Melatonin (Melatonin 3 Mg Tablet) 6 mg PO BEDTIME PRN PRN Reason: Insomnia Ondansetron HCl (Ondansetron Hcl 4 Mg/2 Ml Vial) 4 mg IVPUSH Q8H PRN PRN Reason: Nausea and Vomiting Sodium Chloride (0.9 % Sodium Chloride Flush 3 Ml Syringe) 3 ml IVFLUSH QSHIFT [facility] Last Admin: 03/11/24 07:37 Dose: Not Given Home Medications ?Medication ?Instructions ?Recorded ?Confirmed ?Last Taken ?Type cholecalciferol (vitamin D3) 25 25 mcg PO DAILY 03/11/24 03/11/24 03/10/24 History mcg (1,000 unit) tablet (Vitamin D3) gabapentin 100 mg capsule 100 mg PO BEDTIME 03/11/24 03/11/24 03/10/24 19:30 History Physical Exam Vital Signs: Vital Signs: Last Vital Signs Temp 98.1 F 03/11/24 07:28 Pulse 84 03/11/24 07:28 Resp 16 03/11/24 07:28 BP 129/73 03/11/24 07:28 Pulse Ox 96 03/11/24 07:28 O2 Del Method Room Air 03/11/24 07:28 BMI result Body Mass Index 22.8 Const: General: comfortable and no acute distress Orientation/consciousness: patient oriented x3 HEENT: Other: Unremarkable Head: Yes normal to inspection Neck: Neck: Yes normal visual inspection Chest: Chest palpation & inspection: normal inspection of the chest Resp: Auscultation: clear to auscultation bilaterally Cardio: Palpation: normal PMI Heart sounds: S1 normal heart sound present, S2 normal heart sound present, no gallops, no murmurs and no rubs GI: Palpation (GI): Soft to palpation Back/Spine/Pelvis: Other: unremarkable Skin: General skin exam: no rashes or lesions noted Neuro: General: patient oriented x3 Extrem: General: Yes normal to inspection Psych: Mental Status: mental status grossly normal Objective Labs and Meds 03/11/24 00:36 03/11/24 00:36 Lab results: Laboratory Results - last 24 hr 03/11/24 03/11/24 03/11/24 00:36 00:41 02:11 WBC 11.3 H RBC 4.01 L Hgb 12.4 Hct 36.4 L MCV 90.8 MCH 30.9 MCHC 34.1 RDW 13.2 Plt Count 249 MPV 9.6 Immature Gran % (Auto) 0.3 Neut % (Auto) 62.3 Lymph % (Auto) 25.8 [place] % (Auto) 9.1 Eos % (Auto) 2.1 Baso % (Auto) 0.4 Lymph # (Auto) 2.9 [place] # (Auto) 1.0 Eos # (Auto) 0.2 Baso # (Auto) 0.1 Abs Immat Gran (auto) 0.03 Absolute Neuts (auto) 7.0 Absolute Nucleated RBC 0.000 Nucleated RBC % (auto) 0.0 PT 11.4 INR 1.0 APTT 28.5 D-Dimer High Sensitivty < 150 Sodium 143 Potassium 3.4 Chloride 111 H Carbon Dioxide 23 Anion Gap 12 BUN 14 Creatinine 0.71 Estim Creat Clear Calc 53.2 Estimated GFR > 60 Random Glucose 119 H Calcium 8.9 Troponin I High Sens 8.1 Influenza Type A (PCR) NEGATIVE Influenza Type B (PCR) NEGATIVE RSV RNA Qual (PCR) NEGATIVE SARS-CoV-2 RNA (RT-PCR) NEGATIVE 03/11/24 02:55 WBC RBC Hgb Hct MCV MCH MCHC RDW Plt Count MPV Immature Gran % (Auto) Neut % (Auto) Lymph % (Auto) [place] % (Auto) Eos % (Auto) Baso % (Auto) Lymph # (Auto) [place] # (Auto) Eos # (Auto) Baso # (Auto) Abs Immat Gran (auto) Absolute Neuts (auto) Absolute Nucleated RBC Nucleated RBC % (auto) PT INR APTT D-Dimer High Sensitivty Sodium Potassium Chloride Carbon Dioxide Anion Gap BUN Creatinine Estim Creat Clear Calc Estimated GFR Random Glucose Calcium Troponin I High Sens 7.0 Influenza Type A (PCR) Influenza Type B (PCR) RSV RNA Qual (PCR) SARS-CoV-2 RNA (RT-PCR) ECG Interpretation: EKG shows underlying sinus rhythm at 93/Min; nonspecific ST-T changes. Assessment and Plan (1) Precordial chest pain: Status: Acute Plan Baseline EKG has nonspecific ST-T changes but nothing clearly ischemic. Unremarkable high sensitivity troponin level. Etiology for chest pain not clear. We will plan on echocardiogram for LV function/wall motion. If no overt findings, then proceed with stress echocardiogram. We will follow up with you. Procedures Date of Service Date of Service: 03/11/24
[2024-03-11 09:56] LABS: MANUAL DIFF FLAG NO
[2024-03-11 09:57] LABS: Basophils Percent Auto 0.3 % (0-2); Eosinophils Absolute Auto 0.1 X10*3/uL (0.0-0.4); Eosinophils Percent Auto 0.5 % (0-4); Hematocrit 35.2 % (37.0-47.0); Imm Gran Abs Auto 0.02 X10*3/uL (0.00-0.03); Imm Gran Pct Auto 0.2 % (0.0-0.4); Lymphocytes Percent Auto 10.8 % (20-40); Mean Corpuscular HGB Conc 34.1 g/dl (31.0-35.0); Mean Corpuscular Hemoglobin 30.8 pg (27.0-33.0); Mean Corpuscular Volume 90.3 fL (80.0-98.0); Mean Platelet Volume 9.6 fL (9.4-12.3); Monocytes Absolute Auto 0.9 X10*3/uL (0.1-1.2); Monocytes Percent Auto 9.5 % (2-11); Neutrophils Absolute Auto 7.4 x10*3/uL (2.0-8.3); Neutrophils Percent Auto 78.7 % (45-73); Platelet Count 232 X10*3/uL (160-400); Red Cell Distribution Width 13.3 % (11.0-16.0); White Blood Count 9.4 X10*3/uL (4.8-10.8)
[2024-03-11 10:17] LABS: Anion Gap 9 (12-20); Blood Urea Nitrogen 14 mg/dL (9-16); Calcium 8.7 mg/dL (8.4-10.2); Carbon Dioxide 24 mmol/L (22-29); Chloride 110 mmol/L (96-108); Cholesterol 131 mg/dL (<200); Creatinine Clr Calc Pharmacy 57.2; Estimated Glomerular Filt Rate > 60; Glucose Random 157 mg/dL (60-115); HDL Cholesterol 62 mg/dL (>40); LDL Cholesterol Calculated 58 mg/dL (<100); Potassium 3.9 mmol/L (3.3-5.1); Sodium 139 mmol/L (135-145); Triglycerides 55 mg/dL (<150)
--- NOTE | 2024-03-11 10:29 | MHC.CM.PN ---
CM met with Patient and her /HCP/Jose at bedside, in the ED, and addressed IMM with them (original was given to Patient and a copy will be placed on the chart).Patient lives in a house with her and her Grandson lives on the third floor. Home self care is the goal and CM has initiated and will follow for dc planning. PCP is Dr. Stephani Patel and will transport to home.
[2024-03-11] MEDS: Cholecalciferol (Vitamin D3) 25 MCG TABLET PO (11:06)
[2024-03-11] MEDS: lisinopriL 5 MG TABLET PO (11:06)
--- NOTE | 2024-03-11 15:22 | P.PNIM_ITS ---
Subjective Subjective Date of Service: 03/11/24 Interval History: chest pain Review of Systems chest pain seems improved denies new c/o. Physical Exam 2 Vital Signs: Vital Signs: Last Vital Signs Temp 97.7 F 03/11/24 10:56 Pulse 79 03/11/24 10:56 Resp 18 03/11/24 10:56 BP 129/75 03/11/24 11:06 Pulse Ox 99 03/11/24 10:56 O2 Del Method Room Air 03/11/24 10:56 BMI result Body Mass Index 22.8 General: AOx3, no acute distress Resp: CTA bilaterally CVS: S1, S2, RRR GI: +BS, NT, no distention Skin: Warm, dry Neuro: Cranial nerves II-XII grossly intact bilaterally. Motor grossly intact bilaterally Extremities: No LE edema Psych: Appropriate affect Objective Data Active Medications Acetaminophen (Acetaminophen 325 Mg Tablet) 975 mg PO Q6H PRN PRN Reason: Pain, Mild 1-3,fever,headache Al Hydroxide/Mg Hydroxide (Magnesium Hydrox/Alum Hydrox 30 Ml Oral.Susp) 30 ml PO Q4H PRN PRN Reason: Heartburn Atorvastatin Calcium (Atorvastatin Calcium 10 Mg Tablet) 10 mg PO DAILY [facility] Enoxaparin Sodium (Enoxaparin Sodium 40 Mg/0.4 Ml Syringe) 40 mg SUBCUT Q24H [facility] Last Admin: 03/11/24 09:19 Dose: 40 mg Documented By: KATHY Gabapentin (Gabapentin 100 Mg Capsule) 100 mg PO BEDTIME EARLINE Lisinopril (Lisinopril 5 Mg Tablet) 5 mg PO DAILY [facility]; Protocol Last Admin: 03/11/24 11:06 Dose: 5 mg Documented By: DL Magnesium Hydroxide (Milk Of Magnesia 30 Ml Oral.Susp) 30 ml PO DAILY PRN PRN Reason: Constipation Melatonin (Melatonin 3 Mg Tablet) 6 mg PO BEDTIME PRN PRN Reason: Insomnia Ondansetron HCl (Ondansetron Hcl 4 Mg/2 Ml Vial) 4 mg IVPUSH Q8H PRN PRN Reason: Nausea and Vomiting Sodium Chloride (0.9 % Sodium Chloride Flush 3 Ml Syringe) 3 ml IVFLUSH QSHIFT [facility] Last Admin: 03/11/24 07:37 Dose: Not Given Documented By: KATHY Non-Admin Reason: See Note Vitamin D (Cholecalciferol (Vitamin D3) 25 Mcg Tablet) 25 mcg PO DAILY EARLINE Last Admin: 03/11/24 11:06 Dose: 25 mcg Documented By: DL Labs 03/11/24 09:52 03/11/24 09:52 Labs: Laboratory Results - last 24 hr 03/11/24 03/11/24 03/11/24 00:36 00:41 02:11 MCV 90.8 MCH 30.9 MCHC 34.1 RDW 13.2 Plt Count 249 MPV 9.6 Immature Gran % (Auto) 0.3 Neut % (Auto) 62.3 Lymph % (Auto) 25.8 [place] % (Auto) 9.1 Eos % (Auto) 2.1 Baso % (Auto) 0.4 Lymph # (Auto) 2.9 [place] # (Auto) 1.0 Eos # (Auto) 0.2 Baso # (Auto) 0.1 Abs Immat Gran (auto) 0.03 Absolute Neuts (auto) 7.0 Absolute Nucleated RBC 0.000 Nucleated RBC % (auto) 0.0 PT 11.4 INR 1.0 APTT 28.5 D-Dimer High Sensitivty < 150 Anion Gap 12 Estim Creat Clear Calc 53.2 Estimated GFR > 60 Random Glucose 119 H Calcium 8.9 Troponin I High Sens 8.1 Triglycerides Cholesterol LDL Cholesterol, Calc HDL Cholesterol Influenza Type A (PCR) NEGATIVE Influenza Type B (PCR) NEGATIVE RSV RNA Qual (PCR) NEGATIVE SARS-CoV-2 RNA (RT-PCR) NEGATIVE 03/11/24 03/11/24 02:55 09:52 MCV 90.3 MCH 30.8 MCHC 34.1 RDW 13.3 Plt Count 232 MPV 9.6 Immature Gran % (Auto) 0.2 Neut % (Auto) 78.7 H Lymph % (Auto) 10.8 L [place] % (Auto) 9.5 Eos % (Auto) 0.5 Baso % (Auto) 0.3 Lymph # (Auto) 1.0 L [place] # (Auto) 0.9 Eos # (Auto) 0.1 Baso # (Auto) 0.0 Abs Immat Gran (auto) 0.02 Absolute Neuts (auto) 7.4 Absolute Nucleated RBC 0.000 Nucleated RBC % (auto) 0.0 PT INR APTT D-Dimer High Sensitivty Anion Gap 9 L Estim Creat Clear Calc 57.2 Estimated GFR > 60 Random Glucose 157 H Calcium 8.7 Troponin I High Sens 7.0 Triglycerides 55 Cholesterol 131 LDL Cholesterol, Calc 58 HDL Cholesterol 62 Influenza Type A (PCR) Influenza Type B (PCR) RSV RNA Qual (PCR) SARS-CoV-2 RNA (RT-PCR) Assessment and Plan (1) Precordial chest pain: Status: Acute Plan 74-year-old female with a past medical history significant for CAD, basal cell carcinoma, DJD, HTN, HLD and CVA in 2019, who presented to the ED last night due to left-sided chest pain. acute chest pain, improvement of pain after 1 hour - WBC 11.3, likely reactive - troponin 8.1, 7.0 on repeat - EKG with NSR, no ST elevations - D-dimer negative - patient given nitro x2 and aspirin 324 by EMS with improvement - additional nitroglycerin given in ED - cardiology consult - lipids added to labs - admit to observation with telemetry HTN - continue lisinopril CAD - continue statin full code VTE prophy: lovenox Pt with acute chest pain and hx of CVA, admit for observation and cardiology w/u. Quality Stroke Does the patient have a stroke diagnosis?: No VTE Prior VTE?: No VTE Risk Level:: Medical - moderate - high VTE Device Contraindication: Treatment Not Indicated VTE Drug Contraindication: N/A - Med Ordered
[2024-03-11] MEDS: 0.9 % Sodium Chloride Flush 3 ML SYRINGE IVFLUSH ×2 (15:34→20:50)
[2024-03-11] MEDS: Gabapentin 100 MG CAPSULE PO (20:49)
[2024-03-12 03:50] VITALS: BP 128/66; PULSE 87; RESP 16; TEMP 36.6; O2SAT 98
[2024-03-12 06:43] LABS: MANUAL DIFF FLAG NO
[2024-03-12 06:47] LABS: Basophils Percent Auto 0.3 % (0-2); Eosinophils Absolute Auto 0.2 X10*3/uL (0.0-0.4); Eosinophils Percent Auto 1.9 % (0-4); Hematocrit 39.1 % (37.0-47.0); Hemoglobin 12.8 g/dl (12.0-16.0); Imm Gran Abs Auto 0.02 X10*3/uL (0.00-0.03); Imm Gran Pct Auto 0.3 % (0.0-0.4); Lymphocytes Absolute Auto 1.5 X10*3/uL (1.2-4.9); Lymphocytes Percent Auto 18.8 % (20-40); Mean Corpuscular HGB Conc 32.7 g/dl (31.0-35.0); Mean Corpuscular Hemoglobin 30.5 pg (27.0-33.0); Mean Corpuscular Volume 93.3 fL (80.0-98.0); Mean Platelet Volume 9.7 fL (9.4-12.3); Monocytes Absolute Auto 0.8 X10*3/uL (0.1-1.2); Monocytes Percent Auto 10.3 % (2-11); Neutrophils Absolute Auto 5.5 x10*3/uL (2.0-8.3); Neutrophils Percent Auto 68.4 % (45-73); Platelet Count 246 X10*3/uL (160-400); Red Blood Count 4.19 X10*6/uL (4.20-5.50); Red Cell Distribution Width 13.3 % (11.0-16.0)
[2024-03-12 06:59] LABS: Anion Gap 10 (12-20); Blood Urea Nitrogen 9 mg/dL (9-16); Carbon Dioxide 25 mmol/L (22-29); Chloride 112 mmol/L (96-108); Creatinine Clr Calc Pharmacy 59.1; Estimated Glomerular Filt Rate > 60; Glucose Random 98 mg/dL (60-115); Sodium 143 mmol/L (135-145)
--- NOTE | 2024-03-12 07:00 | CA_ITS ---
Acquisition Time: 2024-03-12 10:54:45 Total Exercise Time: 00:05:00 Test Indications: Abnormal ECG CP Medications: SEE EMAR Protocol: VICTORINO Max HR: 151 BPM 102% of Pred: 147 BPM Max BP: 124/70 mmHG Max Work Load: 4.6 METS Exercise Stress Tets with exercise 5 mins of Victorino Protocol, held at stage 1 due to brisk HR upon just standing, achieving 102% MPHR, without any anginal symptoms, without any arrythmias, with normotensive response to exercise. EKG interpretation harder during exercise due to lots of artifact. Without EKG changes meeting criteria for ischemia in recovery. Echo images obtained by tech at rest and post peak exercise. Definity contrast utilized. Test reviewed with Dr. Lui. Referred By: Miky Lui Electronically Signed By: Yair Miller
[2024-03-12 07:23] VITALS: BP 111/64; PULSE 86; RESP 20; TEMP 37.1; O2SAT 98
[2024-03-12] MEDS: lisinopriL 5 MG TABLET PO (07:41)
[2024-03-12] MEDS: Cholecalciferol (Vitamin D3) 25 MCG TABLET PO (07:41)
[2024-03-12] MEDS: Atorvastatin Calcium 10 MG TABLET PO (07:42)
[2024-03-12] MEDS: 0.9 % Sodium Chloride Flush 3 ML SYRINGE IVFLUSH (07:42)
--- NOTE | 2024-03-12 10:10 | P.PNCA_ITS ---
Subjective Subjective Date of Service: 03/12/24 Interval history: Today, she states that she feels okay. No further chest pains. Review of Systems Review of Systems Yes all other systems are reviewed and are negative Constitutional: Reports as per HPI and Reports no additional constitutional complaints Eyes: Reports as per HPI and Denies no additional eye complaints Denies system reviewed and no additional complaints, except as documented and Reports as per HPI Cardiovascular: Reports as per HPI, Reports no additional cardiovascular complaints, Denies acrocyanosis, Denies cool extremities, Denies chest pain, Denies leg edema, Denies lightheadedness, Denies palpitations and Denies dyspnea Respiratory: Reports as per HPI, Denies no additional respiratory complaints and Denies dyspnea Gastrointestinal: Reports as per HPI and Denies no additional gastrointestinal complaints Genitourinary: Reports as per HPI Musculoskeletal: Reports no additional musculoskeletal complaints and Reports as per HPI Skin/Breast: Reports system reviewed and no additional complaints, except as docu Reports system reviewed and no additional complaints, except as documented and Reports as per HPI Psychiatric: Reports no additional psychiatric complaints and Reports as per HPI Endocrine: Reports no additional endocrine complaints, Reports as per HPI and Denies palpitations Hematologic/Lymphatic: Reports no additional hematologic/lymphatic complaints and Reports as per HPI Allergic/Immunologic: Reports no additional allergic/immunologic complaints and Reports as per HPI Physical Exam Vital Signs: Last Vital Signs Temp 98.7 F 03/12/24 07:23 Pulse 86 03/12/24 07:23 Resp 20 03/12/24 07:23 BP 111/64 03/12/24 07:23 Pulse Ox 98 03/12/24 07:23 O2 Del Method Room Air 03/12/24 07:23 BMI result Body Mass Index 22.4 Const General: comfortable and no acute distress Orientation/consciousness: patient oriented x3 HEENT Other: Unremarkable Head: Yes normal to inspection Neck Neck: Yes normal visual inspection Chest Chest palpation & inspection: normal inspection of the chest Resp Auscultation: clear to auscultation bilaterally Cardio Palpation: normal PMI Heart sounds: S1 normal heart sound present, S2 normal heart sound present, no gallops, no murmurs and no rubs GI Palpation (GI): Soft to palpation Back/Spine/Pelvis Other: unremarkable Skin General skin exam: no rashes or lesions noted Neuro General: patient oriented x3 Extrem General: Yes normal to inspection Psych Mental Status: mental status grossly normal Objective Labs and Meds 03/12/24 06:15 03/12/24 06:15 Lab results: Laboratory Results - last 24 hr 03/11/24 03/12/24 09:52 06:15 WBC 8.0 RBC 4.19 L Hgb 12.8 Hct 39.1 MCV 93.3 MCH 30.5 MCHC 32.7 RDW 13.3 Plt Count 246 MPV 9.7 Immature Gran % (Auto) 0.3 Neut % (Auto) 68.4 Lymph % (Auto) 18.8 L [place] % (Auto) 10.3 Eos % (Auto) 1.9 Baso % (Auto) 0.3 Lymph # (Auto) 1.5 [place] # (Auto) 0.8 Eos # (Auto) 0.2 Baso # (Auto) 0.0 Abs Immat Gran (auto) 0.02 Absolute Neuts (auto) 5.5 Absolute Nucleated RBC 0.000 Nucleated RBC % (auto) 0.0 Sodium 139 143 Potassium 3.9 4.0 Chloride 110 H 112 H Carbon Dioxide 24 25 Anion Gap 9 L 10 L BUN 14 9 Creatinine 0.66 0.64 Estim Creat Clear Calc 57.2 59.1 Estimated GFR > 60 > 60 Random Glucose 157 H 98 Calcium 8.7 9.0 Triglycerides 55 Cholesterol 131 LDL Cholesterol, Calc 58 HDL Cholesterol 62 Progress Note: A&P Assessment and plan (1) Precordial chest pain: Status: Acute Plan Baseline EKG shows nonspecific ST-T changes. High sensitivity troponins are unremarkable. Echocardiogram with preserved LVEF, no wall motion abnormalities. Exercise stress echocardiogram did not show any evidence of ischemia. Overall, no clear cardiac etiology for her symptoms. Pain also seems resolved. If any recurrent symptoms, can reassess. Time Spent With Patient Time: Total time managing care of this patient today ____ minutes. Progress Note: Quality Stroke Does the patient have a stroke diagnosis?: No Procedures Date of Service Date of Service: 03/12/24
[2024-03-12 12:00] VITALS: BP 114/61; PULSE 98; RESP 20; TEMP 37.3; O2SAT 97
--- NOTE | 2024-03-12 12:35 | MHC.CM.PN ---
Patient has been medically cleared for dc to home today, self care.
--- NOTE | 2024-03-12 12:36 | P.DS_ITS ---
DS: Providers Provider Date of Service: 03/12/24 Date of admission: 03/11/24 05:15 Date of discharge: 03/12/24 Primary care physician: Stephani Patel MD Consults: 03/11/24 09:16 Consult to Cardiology Routine Consulting Provider: [facility] [place] [facility] Reason for consultation: Chest pain Has provider been notified: No Attending physician on discharge: Morena Motley Discharging clinician: Morena Motley DS: Diagnosis Discharge Diagnosis (1) Precordial chest pain: Status: Acute DS: Summary Hospital Course Hospital Course: HPI:74-year-old female with a past medical history significant for CAD, basal cell carcinoma, DJD, HTN, HLD and CVA in 2019, who presented to the ED last night due to left-sided chest pain. She reports it began around 23:00 where she was lying on her side resting. She describes it as a soreness with cramping on the left side. There was no additional symptoms including headache, jaw pain, shoulder pain, numbness, tingling, nausea or abdominal pain. She has never had a history of similar in the past but reports that she has had a lot of heartburn and acid reflux recently. Hospital course: 74-year-old female with a past medical history significant for CAD, basal cell carcinoma, DJD, HTN, HLD and CVA in 2019, who presented to the ED last night due to left-sided chest pain. acute chest pain, improvement of pain after 1 hour: intial troponin 8.1, 7.0 ,EKG with NSR, no ST elevations, D-dimer negative,patient given nitro x2 and aspirin 324 by EMS with improvement,additional nitroglycerin given in ED.seen by cardiology-echo:The left ventricular systolic function is normal. The calculated ejection fraction is 63% by biplane method. No obvious valvular pathology seen on this study. stress echo study seems fine -as per cardiology preliminary negative . possible chest soarness MS type -resolved. cardiology cleared for discharge. plan: possible chest soarness MS type -resolved. cardiology cleared for discharge. Above management discussed with the patient in detail length and her . They both understand and in agreement with the above plan, time spent 40 minute. Time Attestation Total time managing care of this patient today: 40 mintues. Discharge Coordination Time (in mins): 40 min Quality: Safe Use of Opioids Does Pt have an Active Cancer Diagnosis on the Problem List?: No Quality: Stroke Does the patient have a stroke diagnosis?: No Physical Exam Vital Signs: Vital Signs: Last Vital Signs Temp 99.2 F 03/12/24 12:00 Pulse 98 03/12/24 12:00 Resp 20 03/12/24 12:00 BP 114/61 03/12/24 12:00 Pulse Ox 97 03/12/24 12:00 O2 Del Method Room Air 03/12/24 12:00 BMI result Body Mass Index 22.4 General: AOx3, no acute distress Resp: CTA bilaterally, no rales or wheezing CVS: S1, S2, RRR GI: +BS, NT, no distention Skin: Warm, dry Neuro: Cranial nerves II-XII grossly intact bilaterally. Motor grossly intact bilaterally Extremities: No LE edema Psych: Appropriate affect DS: Data Data Completed and Pending Labs on day of discharge: Laboratory Results - last 24 hr 03/12/24 06:15 WBC 8.0 RBC 4.19 L Hgb 12.8 Hct 39.1 MCV 93.3 MCH 30.5 MCHC 32.7 RDW 13.3 Plt Count 246 MPV 9.7 Immature Gran % (Auto) 0.3 Neut % (Auto) 68.4 Lymph % (Auto) 18.8 L Chambers % (Auto) 10.3 Eos % (Auto) 1.9 Baso % (Auto) 0.3 Lymph # (Auto) 1.5 Chambers # (Auto) 0.8 Eos # (Auto) 0.2 Baso # (Auto) 0.0 Abs Immat Gran (auto) 0.02 Absolute Neuts (auto) 5.5 Absolute Nucleated RBC 0.000 Nucleated RBC % (auto) 0.0 Sodium 143 Potassium 4.0 Chloride 112 H Carbon Dioxide 25 Anion Gap 10 L BUN 9 Creatinine 0.64 Estim Creat Clear Calc 59.1 Estimated GFR > 60 Random Glucose 98 Calcium 9.0 Imaging Chest x-ray: My impression: stress echo: Exercise Stress Tets with exercise 5 mins of Dex Protocol, held at stage 1 due to brisk HR upon just standing, achieving 102% MPHR, without any anginal symptoms, without any arrythmias, with normotensive response to exercise. EKG interpretation harder during exercise due to lots of artifact. Without EKG changes meeting criteria for ischemia in recovery. Echo images obtained by tech at rest and post peak exercise. Definity contrast utilized. Test reviewed with Dr. Lui. Exercise stress echocardiogram reviewed. At rest, there is normal LVEF and wall motion. After peak exercise, there is appropriate augmentation of wall thickening and contractility. There is normal decrease in end-systolic volumes. No evidence of exercise induced diastolic dysfunction or pulmonary hypertension. Overall, normal study. echo: Conclusions: - The left ventricular systolic function is normal. The calculated ejection fraction is 63% by biplane method. - No obvious valvular pathology seen on this study. Findings Left Ventricle Normal left ventricular cavity size. The left ventricular systolic function is normal. The calculated ejection fraction is 63% by biplane method. There is no evidence of regional wall motion abnormalities. Diastolic function is normal for age. There is mild septal and mild basal asymmetric hypertrophy. Discharge Plan Discharge Anticipated Discharge Date/Time: 03/12/24 12:29 Patient Disposition: Home, Self-Care Discharge Diagnosis: chest pain possible MS type. Referrals: Physician,Unknown J [Physician] - 1 Week Discharge Medications: Continued atorvastatin 10 mg tablet 10 mg PO DAILY Qty: 90 3RF gabapentin 100 mg capsule 100 mg PO BEDTIME cholecalciferol (vitamin D3) [Vitamin D3] 25 mcg (1,000 unit) Tablet 25 mcg PO DAILY lisinopril 5 mg tablet 5 mg PO DAILY Qty: 90 3RF Discharge Orders: Discharge Order (Routine); Ordered 03/12/24 Ordered By: Morena Motley Diet: Advance to usual diet Activity on Discharge: As tolerated Stand Alone Forms: Patient Portal Discharge page Print Language: Wolof Care Plan Goals: 74-year-old female with a past medical history significant for CAD, basal cell carcinoma, DJD, HTN, HLD and CVA in 2019, who presented to the ED last night due to left-sided chest pain: Troponins x2 negative , ekg nsr ,ddimer negative, seen by cardiology-echo:The left ventricular systolic function is normal. The calculated ejection fraction is 63% by biplane method. No obvious valvular pathology seen on this study. stress echo study seems fine -as per cardiology preliminary negative . possible chest soarness MS type -resolved. cardiology cleared for discharge. Health Concerns: as above . Plan of Treatment: as above. Assessment: as above. Discharge Date/Time: 03/12/24 13:22
== END 2024-03-12 13:22 | disposition home or self-care (01) ==
LOC: HO.ED 02:28 → HO.EDOVER 05:21 → HO.IMC 14:27
PROVIDERS: Admitting Provider Physician Assistant; Emergency Provider Internal Medicine; PCP Internal Medicine; Visit Provider Internal Medicine
DX: R07.9 Chest pain, unspecified (principal); R07.2 Precordial pain; I25.10 Atherosclerotic heart disease of native coronary artery without angina pectoris; I10 Essential (primary) hypertension; E78.5 Hyperlipidemia, unspecified; Z86.73 Personal history of transient ischemic attack (TIA), and cerebral infarction without residual deficits; Z03.818 Encounter for observation for suspected exposure to other biological agents ruled out; Z79.899 Other long term (current) drug therapy
CPT/HCPCS: 0241U; 36415; 71045; 80048; 80061; 84484; 85025; 85379; 85610; 85730; 93005; 93306; 93350; 96372; 99222; 99285; J1650; Q9957

== ENCOUNTER → 2024-03-11 01:00 | Outpatient (BNV) | payer MEDICARE, OTHER, SELFPAY | PROVIDERS: Emergency Provider Internal Medicine; Visit Provider Radiology Neuroradiology | DX: R07.9 Chest pain, unspecified (principal) | CPT/HCPCS: 71045 ==

== ENCOUNTER 2024-03-11 05:15 | Outpatient (BNV) | payer MEDICARE, OTHER, SELFPAY | END 2024-03-12 07:00 | PROVIDERS: Admitting Provider Physician Assistant; Emergency Provider Internal Medicine; PCP Internal Medicine | DX: R94.31 Abnormal electrocardiogram [ECG] [EKG] (principal); R07.9 Chest pain, unspecified | CPT/HCPCS: 93016; 93018; 93350; 93352 ==

== ENCOUNTER → 2024-03-11 05:15 | Outpatient (BNV) | payer MEDICARE, OTHER, SELFPAY | PROVIDERS: Admitting Provider Physician Assistant; Emergency Provider Internal Medicine; Visit Provider Internal Medicine | DX: R07.2 Precordial pain (principal) | CPT/HCPCS: 99232 ==

== ENCOUNTER → 2024-03-11 05:15 | Outpatient (BNV) | payer MEDICARE, OTHER, SELFPAY | PROVIDERS: Admitting Provider Physician Assistant; Emergency Provider Internal Medicine; PCP Internal Medicine; Visit Provider Internal Medicine | DX: R07.9 Chest pain, unspecified (principal); R07.2 Precordial pain | CPT/HCPCS: 99222; 99239; 99499 ==

== ENCOUNTER 2024-12-15 09:38 | Outpatient (AMB) | payer MEDICARE, OTHER, SELFPAY ==
--- NOTE | 2024-12-15 09:45 | A.OFFVIS_ITS ---
Intake Vital Signs 12/15/24 09:48 Height 5 ft 1 in Weight 112 lb BMI 21.2 BP 110/78 Blood Pressure Location Lt brachial Position Sitting Respiration 18 Pulse 86 Pulse Source Pulse Oximeter Temp 98.3 F Temp Source Oral Pulse Oximetry (%) 97 Oxygen Delivery Method Room Air Intake Visit Reasons: V [id number] Allergies codeine (CODEINE) Allergy (Unknown, Unverified 12/15/24 09:50) SHORTNESS OF BREATH Medication List - Last Reconciled 12/15/24 by Stephani Patel MD atorvastatin 10 mg PO DAILY cholecalciferol (vitamin D3) (Vitamin D3) 25 mcg PO DAILY gabapentin 100 mg PO BEDTIME lisinopril 5 mg PO DAILY HPI SWV G0439 HPI Details Initiated the conversation about Advanced Directives. Advanced Directives help? patients prepare for current and future decisions about their medical treatment? and place of care. Discussed with patient that it is a process where a patients? current condition and prognosis are reviewed, their wishes for information? regarding their illness are elicited, and likely medical dilemmas are presented? and options discussed. The form can be amended as needed, reviewed yearly and? make changes as needed IPPE/AWV ? year old presents? for her ? Annual? Wellness Visit, initial visit.? Medical / Social History Reviewed? Past Medical History ?Yes? . ? [place]? of Care / Care Team list updated ?Yes . ? Surgical/Hospitalization? History ?Yes . ? Current Medications? (including OTC and supplements) ?Yes . ? Family History ?Yes? . ? Tobacco? Control form ?Yes . ? AUDIT-C (Alcohol use) form? ?Yes . ? Illicit drug use in Social? History ?Yes . ? Current diagnosis of? depression? ?No ? Appropriate PHQ2/PHQ9? completed ?Yes . ? Data entered by ?Medical? Experienced Truck [employer] and reviewed by provider ? Fall Risk ? Fall? History? Have you had any falls with? injury in the past year? ?No . ? Have you had two or more? falls in the past year? ?No . ? Fall Risk Assessment: ?No? falls in the past year . ? HRA filled out by? the patient, reviewed by Provider and scanned. ? IPPE/AWV ? Balance? [place]? ?Yes . ? Tandem? walk ?Yes . ? Walk and? Turn ?Yes . ? Rise from? sit to stand ?Yes . ?Vision? Corrective? lens ?Yes ? Vision? screen ? Up-to-date, has an appointment [] for vision? screening and glaucoma screening ?Hearing? Whisper? test ?pass .? Initiated the conversation about Advanced Directives. Advanced Directives help? patients prepare for current and future decisions about their medical treatment? and place of care. Discussed with patient that it is a process where a patients? current condition and prognosis are reviewed, their wishes for information? regarding their illness are elicited, and likely medical dilemmas are presented? and options discussed. The form can be amended as needed, reviewed yearly and? make changes as needed Written? Plan?Completed. See Patient? Documents. [facility] Medical History Hyperglycemia Basal cell carcinoma DJD (degenerative joint disease), cervical HTN (hypertension) Hyperlipemia CVA (cerebral vascular accident) Surgical History Hx of colonoscopy History of hysterectomy S/P cholecystectomy History of appendectomy Family History Mother Stroke Hypertension Father No problems noted. Paternal Grandmother Cancer Social History Household Members Other:: , 2 alive adult children, Housing: House Alcohol intake: current Alcohol intake frequency: a few times a week Alcohol type: wine Patient Tobacco Use Status: Never used Tobacco e-Cigarette/Vaping Use: Never Used service: No Current occupational status: retired Cognitive needs: No Hearing needs: No Vision needs: Yes Questionnaire Medicare Wellness Checkup [age] What gender do you identify with?: female During the past 4 weeks, how much have you been bothered by emotional problems such as feeling anxious, depressed, irritable, sad or downhearted, and blue?: not at all During the past 4 weeks, has your physical & emotional health limited your social activities with family, friends, neighbors, or groups?: not at all During the past 4 weeks, how much bodily pain have you generally had?: mild pain During the past 4 weeks, was someone available to help you if you needed & wanted help?: yes, as much as I wanted During the past 4 weeks, what was the hardest physical activity you could do for at least 2 minutes?: moderate Can you get to places out of walking distance without help? (For eg., can you travel alone on buses, taxis or drive your car?): Yes Can you go shopping for groceries or clothes without someone's help?: Yes Can you prepare your own meals?: Yes Can you do your housework without help?: Yes Because of any health problems, do you need the help of another person with your personal care needs such as eating, bathing, dressing or getting around the house?: No Can you handle your own money without help?: Yes During the past 4 weeks, how would you rate your health in general?: very good During the past 4 weeks how have things been going for you?: very well; could hardly better Are you having difficulties driving your car?: no Do you always fasten your seat belt when you are in a car?: yes, usually During past 4 weeks, have you been bothered by the following: never: Sexual problems?, Trouble eating well?, Teeth or denture problems?, Problems using the telephone? and Tiredness or fatigue? and sometimes: Falling or dizzy when standing up Have you fallen 2 or more times in the past year?: No Are you afraid of falling?: No Are you a smoker?: no During the past 4 weeks, how many drinks of wine, beer, or other alcoholic beverages did you have?: 1 drink or less per week Do you exercise for about 20 minutes 3 or more times a week?: yes, some of the time Have you been given information to help with the following?: yes: Hazards in your house that might hurt you? and yes: Keeping track of your medications? How often do you have trouble taking medicines the way you have been told to simran e them?: I always take medicine as prescribed How confident are you that you can control & manage most of your health problems?: very confident What is your race?: White Mini Mental State Exam (MMSE) Orientation What is the (year) (season) (date) (day) (month)?: year, season, date, day and month Where are we (state) (county) (town or city) (hospital) (floor)?: state, county, town or city, hospital/clinic and floor Registration Name of 3 unrelated objects clearly and slowly, then ask patient to repeat all 3 of them. (1st repeat determines score. Make sure they can repeat all three): object 1, object 2 and object 3 Attention & Calculation (CHOOSE ONE) Spell WORLD backwards (DLROW): 5 letters Recall Ask patient to repeat the 3 items from question #3.: object 1, object 2 and object 3 Language Show patient a wristwatch & ask what it is. Repeat for pencil.: watch and pencil Ask the patient to repeat the phrase 'No ifs, ands, or buts' after you.: correct Ask the patient to 'take a piece of paper with their right hand' 'fold paper in half' 'place paper on floor': take paper in right hand, fold paper in half and place paper on floor Print the sentence 'CLOSE YOUR EYES' on a piece. If patient actually closes eyes then score.: followed written direction Give patient a blank piece of paper & ask to write a sentence. Score if it contains a noun & verb.: sentence contains subject and verb Score Score: 29 Activity of Daily Living Bathing - sponge bath, tub bath or shower: receives no assistance (gets in/out by self, if usual bathing means Dressing - getting clothes from closets & drawers, including inner/outer garments & fasteners.: gets clothes & gets completely dressed without help Toileting - going to the 'toilet room' for urine/bowel elimination & cleaning self/arranging clothes: goes to toilet room, cleans self, arranges clothes without help Transfer: moves in & out of bed and chair without help (may use support object) Continence: controls urination/bowel movements completely by self Feeding: feeds self without help Total Score: 0 Information obtained from: patient Using telephone: independent Traveling: independent Shopping: independent Preparing meals: independent Housework: independent Taking medicine: independent Managing money: independent PHQ-9 Over the last 2 weeks, how often have you been bothered by any of the following problems? 1. Little interest or pleasure in doing things: not at all 2. Feeling down, depressed, or hopeless: not at all 3. Trouble falling or staying asleep, or sleeping too much: more than half the days 4. Feeling tired or having little energy: not at all 5. Poor appetite or overeating: not at all 6. Feeling bad about yourself - or that you are a failure or have let yourself or your family down: not at all 7. Trouble concentrating on things, such as reading the newspaper or watching television: several days 8. Moving or speaking so slowly that other people could have noticed. Or the opposite - being so fidgety or restless that you have been moving around a lot more than usual: not at all 9. Thoughts that you would be better off or of hurting yourself in some way: not at all Total score: 3 Depression Screening Interpretation: Negative Depression Screening Done: Yes 11562 - PHQ-9 Billing: Yes Source: Developed by Drs. Carlton Dobbs, Jessica Duke, Alex Vargas and colleagues, with an educational priya from [employer]. Review of Systems Const All systems reviewed & are unremarkable except as noted in HPI and below Eyes Reports no additional complaints ENT Reports no additional complaints Card Reports no additional complaints Resp Reports no additional complaints GI Reports no additional complaints Reports no additional complaints Physical Exam Vital Signs: Last Vital Signs Temp 98.3 F 12/15/24 09:48 Pulse 86 12/15/24 09:48 Resp 18 12/15/24 09:48 BP 110/78 12/15/24 09:48 Pulse Ox 97 12/15/24 09:48 Oxygen Delivery Method Room Air 12/15/24 09:48 BMI result Body Mass Index 21.2 Const General: no acute distress HEENT Head: Yes normal to inspection Ears: hearing grossly normal bilaterally Neck Neck: Yes no lymphadenopathy and Yes supple Resp Effort & Inspection: normal respiratory effort Auscultation: clear to auscultation bilaterally Cardio Rhythm: regular rhythm Heart sounds: S1 normal heart sound present and S2 normal heart sound present GI Inspection: Yes normal to inspection Palpation (GI): Soft to palpation Percussion: Yes normal to percussion Auscultation: normal bowel sounds Extrem General: Yes no clubbing, cyanosis or edema Assessment & Plan Assessment & Plan (1) Hyperlipemia: Code(s): E78.5 - Hyperlipidemia, unspecified Plan: cont statin (2) HTN (hypertension): Code(s): I10 - Essential (primary) hypertension Plan: Continue Lisinopril (3) Annual physical exam: Code(s): Z00.00 - Encounter for general adult medical examination without abnormal findings Plan: Well-balanced diet regular physical activity discussed with the patient she will schedule mammogram and will have colonoscopy in February. Patient will return for fasting blood work Orders: Orders Comprehensive [place]. Panel Fast Today E78.5 - Hyperlipidemia, unspecified, I10 - Essential (primary) hypertension, R73.9 - Hyperglycemia, unspecified, Z00.00 - Encounter for general adult medical examination without abnormal findings Complete Blood Count Auto Diff Today E78.5 - Hyperlipidemia, unspecified, I10 - Essential (primary) hypertension, R73.9 - Hyperglycemia, unspecified, Z00.00 - Encounter for general adult medical examination without abnormal findings Lipid Panel Today E78.5 - Hyperlipidemia, unspecified, I10 - Essential (primary) hypertension, R73.9 - Hyperglycemia, unspecified, Z00.00 - Encounter for general adult medical examination without abnormal findings TSH reflex Free T4 Today E78.5 - Hyperlipidemia, unspecified, I10 - Essential (primary) hypertension, R73.9 - Hyperglycemia, unspecified, Z00.00 - Encounter for general adult medical examination without abnormal findings Vitamin D 25-OH Total Today E55.9 - Vitamin D deficiency, unspecified, Z00.00 - Encounter for general adult medical examination without abnormal findings UA w Microscopic Today E78.5 - Hyperlipidemia, unspecified, I10 - Essential (primary) hypertension, R73.9 - Hyperglycemia, unspecified, Z00.00 - Encounter for general adult medical examination without abnormal findings Quality Reporting (2019) Depression/Bipolar (159/160/161/177) PHQ-9: Total score: 3 Coding Level of Care Code Medicare Subsequent (G0439) Diagnoses Hyperlipemia E78.5 HTN (hypertension) I10 Annual physical exam Z00.00 CPT Codes Advance Care Planning - Advance Care Planning discussion: On file, no changes ([id number]) Advance Care Planning - Time spent: 1-15 minutes, on File ([id number]) Additional Codes PHQ-9 - 15757 - PHQ-9 Billing: Yes ([id number]) Advance Care Planning Advance Care Planning discussion: On file, no changes Forms completed: Health Care Proxy Time spent: 1-15 minutes, on File
[2024-12-15 09:48] VITALS: BP 110/78; PULSE 86; RESP 18; TEMP 36.8; O2SAT 97; BMI 21.2
== END 2024-12-15 10:21 | disposition home or self-care (01) ==
LOC: HO.HMCC 09:39
PROVIDERS: PCP Internal Medicine; Visit Provider Internal Medicine
DX: Z00.00 Encounter for general adult medical examination without abnormal findings (principal); E78.5 Hyperlipidemia, unspecified; I10 Essential (primary) hypertension

== ENCOUNTER → 2024-12-15 09:38 | Outpatient (BNVA) | payer MEDICARE, OTHER, SELFPAY | PROVIDERS: PCP Internal Medicine; Visit Provider Internal Medicine | DX: Z00.00 Encounter for general adult medical examination without abnormal findings (principal); E78.5 Hyperlipidemia, unspecified; I10 Essential (primary) hypertension; R73.9 Hyperglycemia, unspecified | CPT/HCPCS: 96127 ==

== ENCOUNTER 2024-12-18 06:01 | Outpatient (REF) | payer MEDICARE, OTHER, SELFPAY ==
[2024-12-18 10:13] LABS: Appearance Urine Clear; Glucose Urine UA Negative (Negative); PH 6.0 (5.0-9.0); Specific Gravity - Urine 1.015 (1.005-1.025); UMIC TRIGGER UA YES
[2024-12-18 10:22] LABS: MANUAL DIFF FLAG NO
[2024-12-18 10:36] LABS: Hematocrit 41.7 % (37.0-47.0); Hemoglobin 13.4 g/dl (12.0-16.0); Imm Gran Abs Auto 0.03 X10*3/uL (0.00-0.03); Imm Gran Pct Auto 0.4 % (0.0-0.4); Lymphocytes Absolute Auto 1.9 X10*3/uL (1.2-4.9); Mean Corpuscular HGB Conc 32.1 g/dl (31.0-35.0); Mean Corpuscular Hemoglobin 30.5 pg (27.0-33.0); Mean Corpuscular Volume 95.0 fL (80.0-98.0); NRBC Abs Auto 0.000 X10*3/uL (0.0-0.012); NRBC Pct Auto 0.0 /100WBC (0.0-0.2); Platelet Count 269 X10*3/uL (160-400); Red Blood Count 4.39 X10*6/uL (4.20-5.50); White Blood Count 8.5 X10*3/uL (4.8-10.8)
[2024-12-18 13:11] LABS: Alanine Aminotransferase 14 U/L (0-31); Albumin Level 4.4 g/dL (3.5-5.0); Alkaline Phosphatase 68 U/L (39-117); Anion Gap 11 (12-20); Aspartate Amino Transferase 23 U/L (5-31); Blood Urea Nitrogen 17 mg/dL (9-16); Calcium 9.1 mg/dL (8.4-10.2); Carbon Dioxide 25 mmol/L (22-29); Chloride 109 mmol/L (96-108); Cholesterol 142 mg/dL (<200); Estimated Glomerular Filt Rate > 60; HDL Cholesterol 67 mg/dL (>40); Potassium 4.0 mmol/L (3.3-5.1); Sodium 141 mmol/L (135-145); Total Protein 6.6 g/dL (6.5-8.0); Triglycerides 86 mg/dL (<150)
== END 2024-12-18 06:02 | disposition home or self-care (01) ==
LOC: HO.HMGCLDS 06:01
PROVIDERS: PCP Internal Medicine; Visit Provider Internal Medicine
DX: Z00.00 Encounter for general adult medical examination without abnormal findings (principal); I10 Essential (primary) hypertension; E78.5 Hyperlipidemia, unspecified; R73.9 Hyperglycemia, unspecified; E55.9 Vitamin D deficiency, unspecified
CPT/HCPCS: 36415; 80053; 80061; 81001; 82306; 84443; 85025